=== PATIENT | female | born 1990 | race Caucasian/White ===

== ENCOUNTER → 2016-08-10 | Outpatient (REF) | payer OTHER ==
[~2016-08-10] MED LIST: ACET50TA PO; HYDR25T PO; METF500T PO; MOTR200T40 PO; OXYC1TAB23 PO; PRENTAB29 PO; PROZ20CA11 PO; TRAN200T PO
[2016-08-10 17:37] LABS: FREE T4 0.8 NG/DL (0.76-1.46)
== END ==
LOC: M SFHCLERA 11:19
PROVIDERS: ATTEND Family Medicine
DX: Z86.59 Personal history of other mental and behavioral disorders (principal); E66.9 Obesity, unspecified; R73.09 Other abnormal glucose

== ENCOUNTER → 2017-04-12 | Outpatient (REF) | payer OTHER ==
[~2017-04-12] MED LIST changes: +HYDR-3363 PO; -HYDR25T PO; -METF500T PO; +METF500T13 PO; -MOTR200T40 PO; +MOTR200T44 PO
[2017-04-12 12:31] LABS: ANION GAP 10 MEQ/L (8-16); BLOOD UREA NITROGEN 11 MG/DL (7-18); CALCIUM LEVEL 8.5 MG/DL (8.5-10.1); CARBON DIOXIDE LEVEL 24 MEQ/L (21-32); CHLORIDE LEVEL 109 MEQ/L (98-107); CREATININE FOR GFR 0.83 MG/DL (0.55-1.02); GLOMERULAR FILTRATION RATE > 60.0 (>60); GLUCOSE, FASTING 106 MG/DL (70-105); SODIUM LEVEL 143 MEQ/L (136-145)
== END ==
LOC: M SFHCLERA 10:58
PROVIDERS: ATTEND Family Medicine
DX: R39.89 Other symptoms and signs involving the genitourinary system (principal); R39.9 Unspecified symptoms and signs involving the genitourinary system

== ENCOUNTER → 2017-04-16 | Outpatient (CLI) | payer OTHER ==
--- NOTE | 2017-04-16 14:18 | REP ---
Clinical: Lower abdominal pain. Technique: Real time sethi scale and color evaluation of the kidneys and bladder using curved array transducer. Findings: The bilateral kidneys are normal in contour, size, echogenicity and reniform shape without hydronephrosis, nephrolithiasis, cystic or renal mass lesion. Right kidney measures 11.3 x 5.3 x 4.1 cm. Left kidney measures 10.8 x 6.0 x 6.0 cm. The bladder is normal in appearance without wall thickening or mass lesion. Bilateral ureteral jets are identified. Prevoid bladder measures 7.5 x 7.0 x 4.7 cm (160 ml). Postvoid bladder is completely emptied. Impression: Normal renal and bladder ultrasound. Signed by Ángel Beltran MD 04/16/2017 02:09 P
== END ==
LOC: M RAD 13:08
PROVIDERS: ATTEND Family Medicine
DX: R10.9 Unspecified abdominal pain (principal)

== ENCOUNTER → 2017-05-21 | Outpatient (REF) | payer OTHER | LOC: M SFHCLERA 09:44 | PROVIDERS: ATTEND Nurse Practitioner Family | DX: J06.9 Acute upper respiratory infection, unspecified (principal) ==

== ENCOUNTER 2017-10-15 13:52 | Day surgery (SDC) | payer OTHER ==
[2017-10-15 14:26] LABS: HEMATOCRIT 39.3 % (36.0-47.0); HEMOGLOBIN 13.2 g/dl (12.0-16.0); MEAN CORPUSCULAR HEMOGLOBIN 28.9 pg (27.0-33.0); MEAN CORPUSCULAR HGB CONC 33.6 g/dl (32.0-36.5); PLATELET COUNT, AUTOMATED 238 10^3/uL (150-450); RED BLOOD COUNT 4.57 10^6/uL (4.00-5.40); RED CELL DISTRIBUTION WIDTH 12.2 % (11.5-14.5); WHITE BLOOD COUNT 8.8 10^3/uL (4.0-10.0)
[2017-10-15] MEDS: LR 1,000 ML IV (14:30)
[2017-10-15 14:39] LABS: CONTROL LINE UCG INT CTR LINE PRESENT; URINE PREG TEST NEGATIVE (NEGATIVE)
[2017-10-15] MEDS ORDERED: METOCLOPRAMIDE INJ 10MG/2ML VIAL (J2765) As Ordered (15:59)
[2017-10-15] MEDS ORDERED: fentaNYL 100 MCG/2 ML INJECTION (J3010) As Ordered ×3 (15:59→17:54)
[2017-10-15] MEDS ORDERED: ONDANSETRON 4MG/2ML VIAL (J2405) As Ordered (15:59)
[2017-10-15] MEDS ORDERED: KETOROLAC 60 MG/2 ML VIAL (J1885) As Ordered (15:59)
[2017-10-15] MEDS ORDERED: LIDOCAINE 2% INJ 100 MG/5 ML SDV (FOR ANES.) As Ordered (15:59)
[2017-10-15] MEDS ORDERED: PROPOFOL 200 MG/20 ML VIAL As Ordered (15:59)
[2017-10-15] MEDS ORDERED: MIDAZOLAM INJ 2 MG/2 ML VIAL (J2250) As Ordered (15:59)
[2017-10-15] MEDS ORDERED: SUCCINYLCHOLINE 100 MG/5 ML SYRINGE (J0330) As Ordered (16:04)
[2017-10-15] MEDS ORDERED: ROCURONIUM BROMIDE 50 MG/5 ML VIAL As Ordered (16:40)
[2017-10-15] MEDS: BUPIVACAINE HCL 0.25% 30 ML VIAL As Ordered (17:19)
[2017-10-15] MEDS ORDERED: GLYCOPYRROLATE INJ 0.2 MG/ML 2 ML VIAL As Ordered (17:42)
[2017-10-15] MEDS ORDERED: PERCOCET 5MG/325MG TAB As Ordered (17:54)
[2017-10-15] MEDS: fentaNYL 100 MCG/2 ML INJECTION (J3010) IV ×4 (17:55→18:10)
[2017-10-15] MEDS ORDERED: HYDROmorphone HCL 1 MG/ML SYRINGE (J1170) IV (18:00)
[2017-10-15] MEDS: PERCOCET 5MG/325MG TAB PO (18:00)
[2017-10-15] MEDS ORDERED: ONDANSETRON 4MG/2ML VIAL (J2405) IV (18:00)
[2017-10-15] MEDS ORDERED: LR 1,000 ML IV (18:00)
== END 2017-10-15 19:25 | disposition home or self-care (01) ==
LOC: M SDC 13:52
DX: N80.3 Endometriosis of pelvic peritoneum (principal); G43.909 Migraine, unspecified, not intractable, without status migrainosus; E28.2 Polycystic ovarian syndrome; F41.9 Anxiety disorder, unspecified; F32.9 Major depressive disorder, single episode, unspecified; J45.909 Unspecified asthma, uncomplicated; R06.83 Snoring; E66.9 Obesity, unspecified; Z68.41 Body mass index [BMI] 40.0-44.9, adult; Z88.0 Allergy status to penicillin; Z88.1 Allergy status to other antibiotic agents; Z88.2 Allergy status to sulfonamides; Z91.041 Radiographic dye allergy status; Z79.899 Other long term (current) drug therapy; Z79.84 Long term (current) use of oral hypoglycemic drugs; Z87.442 Personal history of urinary calculi; Z87.891 Personal history of nicotine dependence
CPT/HCPCS: 58662

== ENCOUNTER → 2017-12-10 | Outpatient (REF) | payer OTHER | LOC: M SFHCLERA 15:08 | DX: J02.9 Acute pharyngitis, unspecified (principal) ==

== ENCOUNTER → 2018-01-10 | Outpatient (REF) | payer OTHER | LOC: M SFHCLERA 17:03 | DX: N89.8 Other specified noninflammatory disorders of vagina (principal) ==

== ENCOUNTER → 2018-04-18 | Outpatient (REF) | payer OTHER | LOC: M SFHCLERA 20:14 | DX: N89.8 Other specified noninflammatory disorders of vagina (principal) | CPT/HCPCS: 87252 ==

== ENCOUNTER → 2018-07-14 | Outpatient (REF) | payer OTHER | LOC: M SFHCLERA 09:11 | DX: R10.13 Epigastric pain (principal); Z53.8 Procedure and treatment not carried out for other reasons ==

== ENCOUNTER → 2018-08-12 | Outpatient (REF) | payer OTHER ==
[~2018-08-12] MED LIST changes: -ACET50TA PO; +FISH7.5C PO; +MAPA500T2 PO; +PROAAER10 INH
== END ==
LOC: M LAB REF 13:34
PROVIDERS: ATTEND Specialist
DX: Z12.4 Encounter for screening for malignant neoplasm of cervix (principal)

== ENCOUNTER → 2019-07-03 | Outpatient (CLI) | payer OTHER ==
[~2019-07-03] MED LIST changes: +PROHANCE 279.3MG/ML 15ML VIAL (A9576) As Ordered ONE; +PROHANCE 279.3MG/ML 5ML VIAL (A9576) As Ordered ONE
--- NOTE | 2019-07-03 17:09 | REP ---
MRI cervical and thoracic spines: 07/03/2019. Indication: Demyelinating disease. Comparison: None. Technique: Multiplanar short and long TR sequences of the cervical thoracic spine were obtained including post-gadolinium imaging. 20 ml IV ProHance were administered. Findings: There is mild straightening of the cervical lordosis which is likely positional. No worrisome marrow signal is present. There are no areas of abnormal cord signal. No pathologic gadolinium enhancement is present. There are no focal disc herniations or areas of significant spinal canal / neural foraminal narrowing. The vertebral artery flow voids are unremarkable. No significant paraspinal soft tissue abnormalities are detected. Impression: Unremarkable MRI evaluation of the cervical and thoracic spines. No abnormal cord signal. Electronically Signed by Parish Smith DO 07/03/2019 05:00 P
== END ==
LOC: M RAD 14:46
DX: G37.9 Demyelinating disease of central nervous system, unspecified (principal)
CPT/HCPCS: 72156; 72157; A9576

== ENCOUNTER → 2019-07-13 | Outpatient (CLI) | payer OTHER ==
[~2019-07-13] MED LIST changes: -PROHANCE 279.3MG/ML 15ML VIAL (A9576) As Ordered ONE; -PROHANCE 279.3MG/ML 5ML VIAL (A9576) As Ordered ONE
[2019-07-13 20:39] LABS: FREE T4 0.94 NG/DL (0.76-1.46); THYROID STIMULATING HORMONE 1.22 uIU/ML (0.358-3.740)
== END ==
LOC: M LRY 15:54
PROVIDERS: ATTEND Internal Medicine Endocrinology, Diabetes & Metabolism
DX: E03.8 Other specified hypothyroidism (principal)
CPT/HCPCS: 36415; 84439; 84443; G0463

== ENCOUNTER → 2019-08-15 | Outpatient (CLI) | payer OTHER ==
[2019-08-15 16:42] LABS: INR 1.06; PROTHROMBIN TIME 13.5 SECONDS (11.8-14.0)
== END ==
LOC: M LAB 15:50
PROVIDERS: ATTEND Psychiatry & Neurology Neurology
DX: G93.2 Benign intracranial hypertension (principal)

== ENCOUNTER → 2019-08-21 | Outpatient (CLI) | payer OTHER ==
[~2019-08-21] MED LIST changes: +ISOVUE-M 300 61% 15ML VIAL (Q9967) As Ordered ONE; +LIDOCAINE 1% MDV 20ML VIAL As Ordered ONE; +METO1TAB33 PO; +OMEP40CA97 PO; +XANA0.25 PO
[2019-08-21 12:31] LABS: APPEARANCE, CSF CLEAR (CLEAR); COLOR, CSF COLORLESS (COLORLESS); CSF TUBE# CELL CNT TUBE 2
[2019-08-21 12:58] LABS: CSF TUBE# GLU TUBE 3; CSF TUBE# TP TUBE 3; GLUCOSE CSF 59 MG/DL (40-75); TOTAL PROTEIN,CSF 26 MG/DL (15-45)
[2019-08-21 14:00] VITALS: BP 133/64
--- NOTE | 2019-08-21 19:53 | REP ---
Lumbar puncture under fluoroscopic guidance. The procedure was performed by SUE Nicolas, under the direct supervision of Dr. Dow. Procedure: The risks and benefits of the procedure were explained to the patient and informed consent was obtained both verbally and written. Directly prior to the start of the procedure, a formal timeout was completed in the procedure room. The patient was placed prone on the fluoroscopy table. The L 2-3 interspinous level was localized and confirmed fluoroscopically, and the skin was marked dorsally at this level. The skin was prepped and draped in the usual sterile fashion. 5 mL of 1% lidocaine 10 mg/ml was utilized for local anesthetic. An 22 gauge 3.5 inches spinal needle was advanced without significant difficulty into the cerebrospinal space at the L 2-3 interspinous level. 13 ml clear freely flowing cerebrospinal fluid was retrieved and sent to the laboratory for analysis. Initial opening pressure was elevated measured by manometry and was 33 cm of water. The patient tolerated the procedure well and there were no immediate complications. 0.3 minutes of fluoroscopy time was utilized for this procedure. Reviewed by SUE Jason 08/21/2019 03:06 P Electronically Signed by Balaji Dow MD 08/21/2019 07:43 P
== END ==
LOC: M IRPRO 10:43
PROVIDERS: ATTEND Psychiatry & Neurology Neurology
DX: G93.2 Benign intracranial hypertension (principal)

== ENCOUNTER → 2019-09-26 | Outpatient (REF) | payer OTHER ==
[~2019-09-26] MED LIST changes: -ISOVUE-M 300 61% 15ML VIAL (Q9967) As Ordered ONE; -LIDOCAINE 1% MDV 20ML VIAL As Ordered ONE
== END ==
LOC: M SFHCWAGY 13:02
PROVIDERS: ATTEND Specialist
DX: Z01.419 Encounter for gynecological examination (general) (routine) without abnormal findings (principal)
CPT/HCPCS: 87624; G0123; G0463

== ENCOUNTER → 2020-01-17 | Outpatient (CLI) | payer OTHER ==
--- NOTE | 2020-01-21 08:15 | ECHO ---
DATE OF PROCEDURE: 01/17/2020 DATE OF : 1990 AGE: 29 REFERRING PROVIDER: Dr. Ni Cazares PATIENT LOCATION: Outpatient REASON FOR STUDY: Palpitations. 2-D MEASUREMENTS: IVS: 1.1 cm LV: 4.4 cm LA: 3.4 cm Aorta: 2.5 cm IVC: 1.7 DOPPLER MEASUREMENTS: Peak velocity across the aortic valve: 1.1 m/s Peak velocity across the LVOT: 0.77 m/s Mitral E: 1.1 Mitral A: 0.77 Ratio: 1.4 2-D COMMENTS: 1. Normal left ventricular size, wall thickness, and normal global left ventricular systolic function. The estimated left ventricular systolic ejection fraction is 60-65%. 2. Normal left atrium. Normal right atrium and right ventricle. 3. The atrial septum appeared to be normal without evidence of defect or shunt. 4. Normal aortic root. 5. No pericardial effusion seen. 6. The aortic valve, mitral valve, and tricuspid valve appeared to be normal. The pulmonic valve and proximal pulmonary artery branches were not well visualized. 7. The inferior vena cava was normal in size, central venous pressure is most likely normal. DOPPLER: Only trace mitral regurgitation detected. Assessment of the left ventricular diastolic function was normal. IMPRESSION: 1. Normal left ventricular systolic and diastolic function. 2. Trace mitral regurgitation. 3. The pulmonic valve and proximal pulmonary artery branches were not well visualized. MTDD
== END ==
LOC: M CARPUL 08:01
PROVIDERS: ATTEND Family Medicine
DX: R00.2 Palpitations (principal)

== ENCOUNTER → 2020-03-12 | Outpatient (REF) | payer OTHER ==
[2020-04-26 17:25] LABS: ALBUMIN 3.7 GM/DL (3.2-5.2); ALT/SGPT 30 U/L (12-78); BILIRUBIN,TOTAL 0.2 MG/DL (0.2-1.0); BLOOD UREA NITROGEN 18 MG/DL (7-18); CALCIUM LEVEL 8.9 MG/DL (8.5-10.1); CARBON DIOXIDE LEVEL 32 MEQ/L (21-32); CHLORIDE LEVEL 105 MEQ/L (98-107); CREATININE FOR GFR 0.82 MG/DL (0.55-1.30); FREE T4 0.99 NG/DL (0.76-1.46); GLOMERULAR FILTRATION RATE > 60.0 (>60); GLUCOSE, FASTING 98 MG/DL (70-100); POTASSIUM SERUM 3.3 MEQ/L (3.5-5.1); SODIUM LEVEL 141 MEQ/L (136-145); TOTAL PROTEIN 7.1 GM/DL (6.4-8.2)
== END ==
LOC: M SFHCLERA 09:34
PROVIDERS: ATTEND Family Medicine
DX: R35.0 Frequency of micturition (principal)
CPT/HCPCS: 80053; 81002; 81025; 84439; 84443; 87086; G0463

== ENCOUNTER → 2020-05-06 | Outpatient (CLI) | payer OTHER ==
[2020-05-06 11:30] LABS: BASO % 0.6 % (0.0-1.0); EOS # 0.1 10^3/uL (0.0-0.5); EOS % 1.5 % (0.0-3.0); HEMATOCRIT 35.1 % (36.0-47.0); HEMOGLOBIN 10.6 g/dl (12.0-15.5); LYMPH # 1.9 10^3/uL (1.5-5.0); LYMPH % 28.4 % (24.0-44.0); MEAN CORPUSCULAR HEMOGLOBIN 24.7 pg (27.0-33.0); MEAN CORPUSCULAR HGB CONC 30.2 g/dl (32.0-36.5); MEAN CORPUSCULAR VOLUME 81.8 fl (80.0-96.0); MONO # 0.4 10^3/uL (0.0-0.8); MONO % 6.2 % (0.0-5.0); NEUTROPHILS # 4.3 10^3/uL (1.5-8.5); NEUTROPHILS % 62.7 % (36.0-66.0); PLATELET COUNT, AUTOMATED 267 10^3/uL (150-450); RED BLOOD COUNT 4.29 10^6/uL (4.00-5.40); WHITE BLOOD COUNT 6.8 10^3/uL (4.0-10.0)
[2020-05-06 11:32] LABS: APPEARANCE, URINE HAZY (CLEAR); BACTERIA, URINE AUTO NEGATIVE (NEGATIVE); BILIRUBIN, URINE AUTO NEGATIVE (NEGATIVE); BLOOD, URINE BLOOD NEGATIVE (NEGATIVE); COLOR, URINE YELLOW (YELLOW); GLUCOSE, URINE (UA) AUTO NEGATIVE (NEGATIVE); KETONE, URINE AUTO NEGATIVE (NEGATIVE); LEUKOCYTE ESTERASE, URINE AUTO NEGATIVE (NEGATIVE); MUCUS, URINE SMALL (NEGATIVE); NITRITE, URINE AUTO NEGATIVE (NEGATIVE); PROTEIN, URINE AUTO NEGATIVE (NEGATIVE); RBC, URINE AUTO 0 /HPF (0-3); SQUAMOUS EPITHELIAL CELL UR AU 2 /HPF (0-6); UROBILINOGEN, URINE AUTO 0.2 mg/dL (0.0-2.0); WBC, URINE AUTO 0 /HPF (0-3)
[2020-05-06 11:41] LABS: INR 1.03; PROTHROMBIN TIME 13.7 SECONDS (12.5-14.3)
[2020-05-06 12:17] LABS: ALBUMIN 3.4 GM/DL (3.2-5.2); ALT/SGPT 27 U/L (12-78); BILIRUBIN,TOTAL 0.2 MG/DL (0.2-1.0); BLOOD UREA NITROGEN 16 MG/DL (7-18); CALCIUM LEVEL 8.5 MG/DL (8.5-10.1); CARBON DIOXIDE LEVEL 31 MEQ/L (21-32); CHLORIDE LEVEL 107 MEQ/L (98-107); CHOLESTEROL LEVEL 166 MG/DL (<200); CHOLESTEROL RISK RATIO 3.531 (<5); CREATININE FOR GFR 0.72 MG/DL (0.55-1.30); FERRITIN 11 NG/ML (8-252); FOLATE 6.7 NG/ML (>5.4); GLOMERULAR FILTRATION RATE > 60.0 (>60); GLUCOSE, FASTING 88 MG/DL (70-100); HDL CHOLESTEROL 47 MG/DL (>40); LDL CHOLESTEROL 106 MG/DL (<100); NON-HDL-C 119 MG/DL; PTH INTACT 88.5 PG/ML (18.5-88.0); SODIUM LEVEL 141 MEQ/L (136-145); TOTAL 25(OH) VITAMIN D 20.3 NG/ML (30.0-100.0); TOTAL PROTEIN 7.2 GM/DL (6.4-8.2); TRIGLYCERIDES LEVEL 64 MG/DL (<150); VITAMIN B12 LEVEL 458 PG/ML (247-911)
[2020-05-06 12:30] LABS: HEMOGLOBIN A1c 5.8 %
== END ==
LOC: M LAB 10:16
PROVIDERS: ATTEND Surgery
DX: E03.8 Other specified hypothyroidism (principal); R53.83 Other fatigue; Z68.42 Body mass index [BMI] 45.0-49.9, adult

== ENCOUNTER → 2020-05-06 | Outpatient (CLI) | payer OTHER ==
[2020-05-06 12:15] LABS: CORTISOL AM 5.1 UG/DL (4.3-22.4); FREE T4 0.85 NG/DL (0.76-1.46); THYROID STIMULATING HORMONE 2.26 uIU/ML (0.358-3.740)
== END ==
LOC: M LAB 10:11
PROVIDERS: ATTEND Internal Medicine Endocrinology, Diabetes & Metabolism
DX: E03.8 Other specified hypothyroidism (principal); R53.83 Other fatigue

== ENCOUNTER → 2020-06-02 | Outpatient (CLI) | payer OTHER ==
--- NOTE | 2020-06-04 13:20 | SLEEPCENT ---
DATE: 06/02/2020 ORDERED BY: Dr. Zhong Nocturnal polysomnography was performed for evaluation of sleep physiology in this patient with excessive somnolence and nonrestorative sleep. Eight hours and 4 minutes of data were reviewed. There were 403.5 minutes of sleep identified. Sleep latency was prolonged at 24 minutes. REM latency was mildly prolonged at 118 minutes. Sleep architecture showed fragmentation. There were three REM cycles appreciated. Overall sleep efficiency was 84.4%. The electrocardiogram showed a sinus rhythm with an average heart rate of 60 beats per minute. EEG showed fairy normal waveforms for wake and sleep. There were no focal events identified. There were 232 respiratory events identified of 10 seconds in duration or greater for an apnea-hypopnea index of 34.5. The events were obstructive not exclusive to sleep stage nor body posture. Arousals from respiratory events occurred 9.2 times per hour and oxygen desaturations were seen into the low 80s with some activity in the limb leads, one train of 30 events, limb movement arousal index was 3. IMPRESSION: Severe obstructive sleep apnea syndrome (G47.33). Apnea-hypopnea index 34.5. RECOMMENDATION: The patient should be encouraged to return to [facility] for [facility]. In the interim, alcohol and sedative avoidance should be practiced and cautioned exercised during the operation of motor vehicles. FLORD
== END ==
LOC: M SLEEP 20:00
PROVIDERS: ATTEND Internal Medicine Pulmonary Disease
DX: R40.0 Somnolence (principal)

== ENCOUNTER → 2020-10-14 | Outpatient (CLI) | payer OTHER ==
--- NOTE | 2020-10-14 11:04 | REP ---
INDICATION: HISTORY OF LEFT GANGLION CYST. COMPARISON: None. TECHNIQUE: AP, lateral, oblique views of the left wrist FINDINGS: Osseous structures, joint spaces, and surrounding soft tissues are normal. No obvious soft tissue abnormality identified by radiographic evaluation. IMPRESSION: Normal right wrist radiographs. <Electronically signed by Ángel Beltran > 10/14/20 1103
== END ==
LOC: M SOG 10:41
PROVIDERS: ATTEND Orthopaedic Surgery Sports Medicine
DX: M67.432 Ganglion, left wrist (principal)
CPT/HCPCS: 17110; 73110; G0463

== ENCOUNTER → 2020-10-21 | Outpatient (CLI) | payer OTHER ==
--- NOTE | 2020-10-21 12:25 | REP ---
INDICATION: GANGLION, LEFT WRIST. COMPARISON: None. TECHNIQUE: Multiple sequences obtained in the axial, coronal and sagittal planes. FINDINGS: Triangular fibrocartilage complex:No evidence of tear. Scapholunate and lunatotriquetral ligaments: Intact. Flexor and extensor tendons: Intact. There is a tiny amount of fluid surrounding the extensor carpi ulnaris tendon at the level of the distal radius.. Carpal tunnel region: No significant abnormality. No abnormal signal in median nerve. No ganglion cyst is seen. Joint fluid: There is a small amount of fluid in the radiocarpal joint.. Distal radioulnar joint: No significant fluid present. Bone marrow: No edema or occult fracture. IMPRESSION: Essentially negative MRI right wrist. Tiny amount of fluid surrounds the extensor carpi ulnaris tendon. Small amount of fluid in the radiocarpal joint. <Electronically signed by Anup Mcmillan > 10/21/20 [id number]
== END ==
LOC: M RAD 10:24
PROVIDERS: ATTEND Orthopaedic Surgery Sports Medicine
DX: M67.432 Ganglion, left wrist (principal)

== ENCOUNTER → 2020-10-31 | Outpatient (REF) | payer OTHER | LOC: M LAB REF 16:36 | PROVIDERS: ATTEND Physician Assistant | DX: D23.9 Other benign neoplasm of skin, unspecified (principal) ==

== ENCOUNTER 2020-12-11 13:47 | Emergency (ER) | payer OTHER ==
[~2020-12-11] VITALS: Ht 165.1 cm; Wt 121.0 kg
[2020-12-11 14:53] LABS: BASO # 0.1 10^3/uL (0.0-0.2); BASO % 0.7 % (0.0-1.0); EOS # 0.1 10^3/uL (0.0-0.5); EOS % 0.8 % (0.0-3.0); HEMATOCRIT 40.1 % (36.0-47.0); HEMOGLOBIN 12.9 g/dl (12.0-15.5); LYMPH # 2.4 10^3/uL (1.5-5.0); LYMPH % 27.1 % (24.0-44.0); MEAN CORPUSCULAR HEMOGLOBIN 28.1 pg (27.0-33.0); MEAN CORPUSCULAR HGB CONC 32.2 g/dl (32.0-36.5); MEAN CORPUSCULAR VOLUME 87.4 fl (80.0-96.0); MONO # 0.5 10^3/uL (0.0-0.8); MONO % 6.1 % (2.0-8.0); NEUTROPHILS # 5.7 10^3/uL (1.5-8.5); PLATELET COUNT, AUTOMATED 274 10^3/uL (150-450); RED BLOOD COUNT 4.59 10^6/uL (4.00-5.40); WHITE BLOOD COUNT 8.7 10^3/uL (4.0-10.0)
[2020-12-11 15:08] LABS: INR 1.03; PROTHROMBIN TIME 13.7 SECONDS (12.5-14.3)
[2020-12-11 15:09] LABS: PARTIAL THROMBOPLASTIN TIME 32.9 SECONDS (24.2-38.5)
[2020-12-11 15:15] LABS: BLOOD UREA NITROGEN 14 MG/DL (7-18); CALCIUM LEVEL 9.6 MG/DL (8.5-10.1); CARBON DIOXIDE LEVEL 29 MEQ/L (21-32); CHLORIDE LEVEL 108 MEQ/L (98-107); CK-MB VALUE MASS 1.5 NG/ML (<3.6); CPK CREATINE PHOSPHOKINASE 125 U/L (26-192); CREATININE FOR GFR 0.79 MG/DL (0.55-1.30); GLOMERULAR FILTRATION RATE > 60.0 (>60); GLUCOSE, FASTING 83 MG/DL (70-100); SODIUM LEVEL 142 MEQ/L (136-145); TROPONIN I < 0.02 NG/ML (< 0.10)
[2020-12-11 15:29] LABS: HCG, SERUM QUALITATIVE NEGATIVE (NEGATIVE)
[2020-12-11] MEDS ORDERED: FERR325T19 (15:37)
[2020-12-11] MEDS ORDERED: CHLO125TA (15:37)
[2020-12-11] MEDS ORDERED: ACET500C10 (15:37)
[2020-12-11] MEDS ORDERED: POTA20TA6 (15:37)
[2020-12-11] MEDS ORDERED: AMMO12LO (15:37)
[2020-12-11] MEDS ORDERED: EUTH50TA (15:37)
[2020-12-11] MEDS ORDERED: PIME1CRE (15:37)
[2020-12-11] MEDS ORDERED: BUPR150T5 (15:37)
[2020-12-11] MEDS ORDERED: VRAY3CAP (15:38)
--- NOTE | 2020-12-11 15:50 | REP ---
INDICATION: CVA. COMPARISON: None. TECHNIQUE: Portable FINDINGS: The technique utilized in obtaining the radiograph has magnified the cardiac silhouette and accentuated the interstitial markings. The superior mediastinal structures are midline. The cardiac silhouette is unremarkable in size, shape, and position. The diaphragmatic surfaces of the lungs are regular, and the costophrenic angles are clear. The pulmonary haynes are clear. The imaged osseous structures are intact. IMPRESSION: There is no acute cardiopulmonary disease. <Electronically signed by Cornelio Grewal > 12/11/20 [id number]
--- NOTE | 2020-12-11 16:03 | REPVR ---
PROCEDURE INFORMATION: Exam: CT Head Without Contrast Exam date and time: 12/11/2020 3:53 PM Age: 30 years old Clinical indication: Pain; Headache; Additional info: Visual changes, double visons TECHNIQUE: Imaging protocol: Computed tomography of the head without contrast. Axial and coronal reformatted images were created and reviewed. Radiation optimization: All CT scans at this facility use at least one of these dose optimization techniques: automated exposure control; mA and/or kV adjustment per patient size (includes targeted exams where dose is matched to clinical indication); or iterative reconstruction. COMPARISON: No relevant prior studies available. FINDINGS: Brain: No CT evidence of acute intracranial hemorrhage or acute territorial infarction. No significant mass effect or midline shift. Basal cisterns patent. Cerebral ventricles: Normal in size and configuration. Bones/joints: No acute osseous abnormality. Paranasal sinuses: Unremarkable. No fluid levels. Mastoid air cells: Grossly unremarkable. Soft tissues: Grossly unremarkable. IMPRESSION: No CT evidence of acute intracranial pathology. Electronically signed by: Miguel Davenport On 12/11/2020 16:03:21 PM
[2020-12-11] MEDS: POTASSIUM CHLORIDE 10 MEQ SR TABLET PO ONE (16:13)
[2020-12-11 16:44] VITALS: BP 136/80
--- NOTE | 2020-12-12 02:44 | ECGEPIP ---
[facility] - ED Test Date: 2020-12-11 Pat Name: JIM HAIR Department: Room: - Gender: Female [employer] Chair: akhilgiorgi : 1990 Requested By: BRENT Cross Order Number: [id number] Reading MD: Kye Gray Measurements Intervals [place] Rate: 76 P: 60 MD: 168 QRS: 31 QRSD: 98 T: 3 QT: 418 QTc: 470 Interpretive Statements Normal sinus rhythm POOR R WAVE PROGRESSION BASELINE ARTIFACT AFFECTS INTERPRETATION Electronically Signed on 12-12-2020 2:43:33 EDT by Kye Gray
== END 2020-12-11 16:44 | disposition home or self-care (01) ==
LOC: M ED 13:47
DX: G93.2 Benign intracranial hypertension (principal); E87.6 Hypokalemia; K58.9 Irritable bowel syndrome, unspecified; K90.0 Celiac disease; I10 Essential (primary) hypertension; E28.2 Polycystic ovarian syndrome; G47.33 Obstructive sleep apnea (adult) (pediatric); F41.9 Anxiety disorder, unspecified; F17.200 Nicotine dependence, unspecified, uncomplicated; Z79.899 Other long term (current) drug therapy; Z79.890 Hormone replacement therapy; Z88.1 Allergy status to other antibiotic agents; Z88.2 Allergy status to sulfonamides; Z88.8 Allergy status to other drugs, medicaments and biological substances; Z88.0 Allergy status to penicillin; Z91.041 Radiographic dye allergy status

== ENCOUNTER 2020-12-17 18:27 | Emergency (ER) | payer OTHER ==
[~2020-12-17] VITALS: Ht 165.1 cm; Wt 119.4 kg
[~2020-12-17 18:27] MED LIST changes: +ACET500C10; +AMMO12LO; +BUPR150T5; +CHLO125TA; +EUTH50TA; +FERR325T19; +PIME1CRE; +POTA20TA6; +VRAY3CAP
[2020-12-17] MEDS ORDERED: NS 1,000 ML IV ONE (19:40)
[2020-12-17] MEDS ORDERED: KETOROLAC 30 MG/ML 1ML VIAL IV ONE (19:40)
[2020-12-17] MEDS ORDERED: METOCLOPRAMIDE INJ 10MG/2ML VIAL (J2765 PER 1) IV ONE (19:40)
[2020-12-17] MEDS ORDERED: diphenhydrAMINE 50MG/ML VIAL (J1200) IV ONE (19:40)
[2020-12-17 20:51] LABS: BASO # 0.1 10^3/uL (0.0-0.2); BASO % 0.7 % (0.0-1.0); EOS # 0.1 10^3/uL (0.0-0.5); EOS % 0.9 % (0.0-3.0); HEMATOCRIT 39.8 % (36.0-47.0); HEMOGLOBIN 13.4 g/dl (12.0-15.5); LYMPH # 2.4 10^3/uL (1.5-5.0); LYMPH % 22.5 % (24.0-44.0); MEAN CORPUSCULAR HGB CONC 33.7 g/dl (32.0-36.5); MEAN CORPUSCULAR VOLUME 86.1 fl (80.0-96.0); MONO # 0.5 10^3/uL (0.0-0.8); MONO % 4.5 % (2.0-8.0); NEUTROPHILS # 7.4 10^3/uL (1.5-8.5); NEUTROPHILS % 70.9 % (36.0-66.0); PLATELET COUNT, AUTOMATED 270 10^3/uL (150-450); RED BLOOD COUNT 4.62 10^6/uL (4.00-5.40); WHITE BLOOD COUNT 10.5 10^3/uL (4.0-10.0)
[2020-12-17 21:15] LABS: BLOOD UREA NITROGEN 17 MG/DL (7-18); CALCIUM LEVEL 8.7 MG/DL (8.5-10.1); CARBON DIOXIDE LEVEL 25 MEQ/L (21-32); CHLORIDE LEVEL 107 MEQ/L (98-107); CREATININE FOR GFR 0.94 MG/DL (0.55-1.30); GLOMERULAR FILTRATION RATE > 60.0 (>60); GLUCOSE, FASTING 96 MG/DL (70-100); POTASSIUM SERUM 2.7 MEQ/L (3.5-5.1); SODIUM LEVEL 142 MEQ/L (136-145)
[2020-12-17] MEDS ORDERED: POTASSIUM CHLORIDE 10 MEQ SR TABLET PO ONE ×2 (21:20→22:50)
[2020-12-17 21:30] LABS: MAGNESIUM LEVEL 1.9 MG/DL (1.8-2.4)
--- NOTE | 2020-12-17 21:48 | REPVR ---
PROCEDURE INFORMATION: Exam: CT Head without Contrast Exam date and time: 12/17/20 (8:59pm) Age: 30 years old Clinical indication: Headache. Possible IIH. TECHNIQUE: Imaging protocol: Computed tomography of the head without contrast. Radiation optimization: All CT scans at this facility use at least one of these dose optimization techniques: automated exposure control; mA and/or kV adjustment per patient size (includes targeted exams where dose is matched to clinical indication); or iterative reconstruction. COMPARISON: CT HEAD of 12/11/20 FINDINGS: Brain: Unremarkable. No acute hemorrhage. Unremarkable white matter. No mass effect. Cerebral ventricles: No ventriculomegaly. Bones/joints: Unremarkable. No acute fracture. Paranasal sinuses: Visualized sinuses are unremarkable. No air-fluid levels. Mastoid air cells: Visualized mastoid air cells are well aerated. Soft tissues: Unremarkable. IMPRESSION: No acute intracranial pathology is appreciated. The brain had a similar appearance 6 days ago. Electronically signed by: Agnes Diallo On 12/17/2020 21:48:41 PM
[2020-12-17 23:30] VITALS: BP 124/59
--- NOTE | 2020-12-18 04:59 | ECGEPIP ---
[facility] - ED Test Date: 2020-12-17 Pat Name: JIM HAIR Department: Room: - Gender: Female [employer]: ELEAZAR : 1990 Requested By: MONTRELL Valdes Order Number: [id number] Reading MD: Kye Gray Measurements Intervals [place] Rate: 75 P: -2 OK: 164 QRS: 27 QRSD: 96 T: 56 QT: 408 QTc: 455 Interpretive Statements Normal sinus rhythm POOR R WAVE PROGRESSION Nonspecific T wave abnormality BASELINE ARTIFACT AFFECTS INTERPRETATION SIMILAR TO 12/11/20 Electronically Signed on 12-18-2020 4:59:02 EDT by Kye Gray
== END 2020-12-18 01:44 | disposition home or self-care (01) ==
LOC: M ED 18:27
DX: R51.9 Headache, unspecified (principal); G93.2 Benign intracranial hypertension; R42 Dizziness and giddiness; E28.2 Polycystic ovarian syndrome; E66.01 Morbid (severe) obesity due to excess calories; Z88.0 Allergy status to penicillin; Z88.8 Allergy status to other drugs, medicaments and biological substances; Z88.2 Allergy status to sulfonamides; Z79.899 Other long term (current) drug therapy
CPT/HCPCS: 70450; 80048; 83735; 84702; 85025; 93005; 96361; 96374; 96375; 99285; J1200; J1885; J2765

== ENCOUNTER → 2020-12-19 | Outpatient (CLI) | payer OTHER ==
[~2020-12-19] MED LIST changes: +E-Z-GAS II EFFERVESCENT PACKET (SODIUM BICARB./CITRIC ACID/SIMETHICONE) As Ordered ONE; +E-Z-HD 98% w/w 340GM SUSP BTL As Ordered ONE; +E-Z-PAQUE 96% w/w SUSP 176GM BTL As Ordered ONE
--- NOTE | 2020-12-20 09:16 | REP ---
INDICATION: MORBID OBESITY, PRE-OP. COMPARISON: None TECHNIQUE: This procedure was performed by Ginny Strauss [facility], under the direct supervision of Dr. Mcmillan. Images were reviewed with Dr. Mcmillan prior to dictation. Liquid barium and gas producing crystals were given in the erect position, as well as liquid barium in the prone oblique position in order to perform a double contrast upper GI examination. FINDINGS: The boat person film shows no organomegaly or pathological masses. The intestinal gas pattern is unremarkable. The oral and pharyngeal stages of deglutition were unremarkable. Esophageal transport is prompt and efficient and there is no evidence of esophagitis, stricture, or mucosal ring. There is no evidence of a hiatal hernia. There was no gastroesophageal reflux noted . The stomach yanez are normally outlined. The rugal folds are smooth and regular. There is no gastritis, neoplasm, or ulcerative disease. The duodenal yanez are normally outlined. The mucosal folds are smooth and regular. There is no duodenitis, peptic ulcer disease or neoplasm. The visualized portion of the proximal small bowel appears normal in course and caliber. IMPRESSION: Unremarkable upper GI. 0.6 minutes of fluoroscopy time was utilized for this procedure. Some fluoroscopic images are performed with last image hold technology. These images require no additional radiation. <Electronically signed by Ginny Strauss > 12/19/20 1715 <Electronically signed by Anup Mcmillan > 12/20/20 [id number]
== END ==
LOC: M RAD 08:20
PROVIDERS: ATTEND Surgery
DX: Z01.818 Encounter for other preprocedural examination (principal); E66.01 Morbid (severe) obesity due to excess calories

== ENCOUNTER → 2021-01-27 | Outpatient (REF) | payer OTHER ==
[~2021-01-27] MED LIST changes: -E-Z-GAS II EFFERVESCENT PACKET (SODIUM BICARB./CITRIC ACID/SIMETHICONE) As Ordered ONE; -E-Z-HD 98% w/w 340GM SUSP BTL As Ordered ONE; -E-Z-PAQUE 96% w/w SUSP 176GM BTL As Ordered ONE; +OMEP40CA4 PO; -OMEP40CA97 PO
== END ==
LOC: M SFHCLERA 16:25
PROVIDERS: ATTEND Nurse Practitioner Family
DX: R00.2 Palpitations (principal)

== ENCOUNTER → 2021-02-06 | Outpatient (REF) | payer OTHER | LOC: M LAB REF 17:51 | PROVIDERS: ATTEND Physician Assistant | DX: D48.5 Neoplasm of uncertain behavior of skin (principal) ==

== ENCOUNTER → 2021-07-14 | Outpatient (CLI) | payer OTHER ==
[~2021-07-14] MED LIST changes: +POTA-151; -POTA20TA6
[2021-07-14 11:22] LABS: APPEARANCE, URINE HAZY (CLEAR); BACTERIA, URINE AUTO NEGATIVE (NEGATIVE); BASO # 0.1 10^3/uL (0.0-0.2); BASO % 0.5 % (0.0-1.0); BILIRUBIN, URINE AUTO NEGATIVE (NEGATIVE); BLOOD, URINE BLOOD NEGATIVE (NEGATIVE); COLOR, URINE YELLOW (YELLOW); EOS # 0.1 10^3/uL (0.0-0.5); EOS % 1.1 % (0.0-3.0); GLUCOSE, URINE (UA) AUTO NEGATIVE (NEGATIVE); HEMATOCRIT 35.7 % (36.0-47.0); HEMOGLOBIN 11.6 g/dl (12.0-15.5); KETONE, URINE AUTO NEGATIVE (NEGATIVE); LEUKOCYTE ESTERASE, URINE AUTO NEGATIVE (NEGATIVE); LYMPH # 1.8 10^3/uL (1.5-5.0); MEAN CORPUSCULAR HEMOGLOBIN 27.7 pg (27.0-33.0); MEAN CORPUSCULAR HGB CONC 32.5 g/dl (32.0-36.5); MEAN CORPUSCULAR VOLUME 85.2 fl (80.0-96.0); MONO # 0.4 10^3/uL (0.0-0.8); MONO % 4.8 % (2.0-8.0); MUCUS, URINE SMALL (NEGATIVE); NEUTROPHILS # 6.7 10^3/uL (1.5-8.5); NEUTROPHILS % 73.1 % (36.0-66.0); NITRITE, URINE AUTO NEGATIVE (NEGATIVE); PLATELET COUNT, AUTOMATED 296 10^3/uL (150-450); PROTEIN, URINE AUTO NEGATIVE (NEGATIVE); RBC, URINE AUTO 1 /HPF (0-3); RED BLOOD COUNT 4.19 10^6/uL (4.00-5.40); SPECIFIC GRAVITY URINE AUTO 1.023 (1.002-1.035); SQUAMOUS EPITHELIAL CELL UR AU 2 /HPF (0-6); WBC, URINE AUTO 1 /HPF (0-3); WHITE BLOOD COUNT 9.2 10^3/uL (4.0-10.0)
[2021-07-14 11:36] LABS: INR 1.11; PROTHROMBIN TIME 14.7 SECONDS (12.7-14.5)
[2021-07-14 11:37] LABS: PARTIAL THROMBOPLASTIN TIME 34.4 SECONDS (25.9-37.0)
[2021-07-14 11:59] LABS: HEMOGLOBIN A1c 5.2 %
[2021-07-14 12:37] LABS: ALBUMIN 3.2 GM/DL (3.2-5.2); ALT/SGPT 18 U/L (12-78); BILIRUBIN,TOTAL 0.3 MG/DL (0.2-1.0); BLOOD UREA NITROGEN 13 MG/DL (7-18); CALCIUM LEVEL 9.1 MG/DL (8.5-10.1); CARBON DIOXIDE LEVEL 30 MEQ/L (21-32); CHLORIDE LEVEL 103 MEQ/L (98-107); CHOLESTEROL LEVEL 153 MG/DL (<200); CHOLESTEROL RISK RATIO 2.637 (<5); CREATININE FOR GFR 0.79 MG/DL (0.55-1.30); FERRITIN 11 NG/ML (8-252); FOLATE 10.8 NG/ML (>5.4); FREE T3 2.9 PG/ML (2.2-4.0); FREE T4 1.01 NG/DL (0.76-1.46); GLOMERULAR FILTRATION RATE > 60.0 (>60); GLUCOSE, FASTING 85 MG/DL (70-100); HDL CHOLESTEROL 58 MG/DL (>40); IRON (FE) 49 UG/DL (50-170); LDL CHOLESTEROL 69 MG/DL (<100); NON-HDL-C 95 MG/DL; PERCENT SATURATION 10.3 % (13.2-45.0); POTASSIUM SERUM 3.2 MEQ/L (3.5-5.1); PTH INTACT 52.4 PG/ML (18.5-88.0); SODIUM LEVEL 141 MEQ/L (136-145); TOTAL 25(OH) VITAMIN D 24.5 NG/ML (30.0-100.0); TOTAL IRON BINDING CAPACITY 478 UG/DL (250-450); TOTAL PROTEIN 7.2 GM/DL (6.4-8.2); TRIGLYCERIDES LEVEL 130 MG/DL (<150)
[2021-07-14 13:03] LABS: VITAMIN B12 LEVEL 361 PG/ML (247-911)
[2021-07-19 13:07] LABS: INSULIN LEVEL 37.2 uIU/mL (2.6-24.9); VITAMIN B1 LEVEL WHOLE BLOOD 119.7 nmol/L (66.5-200.0)
== END ==
LOC: M LAB 09:34
PROVIDERS: ATTEND Registered Nurse
DX: E66.01 Morbid (severe) obesity due to excess calories (principal); G93.2 Benign intracranial hypertension; G47.33 Obstructive sleep apnea (adult) (pediatric); I15.9 Secondary hypertension, unspecified; K21.9 Gastro-esophageal reflux disease without esophagitis; E03.9 Hypothyroidism, unspecified; R53.83 Other fatigue; F32.9 Major depressive disorder, single episode, unspecified

== ENCOUNTER → 2021-09-25 | Outpatient (CLI) | payer OTHER ==
[~2021-09-25] MED LIST changes: +BUPR-71; -BUPR150T5
[2021-09-25 10:51] LABS: BASO # 0.1 10^3/uL (0.0-0.2); BASO % 0.6 % (0.0-1.0); EOS # 0.1 10^3/uL (0.0-0.5); EOS % 0.9 % (0.0-3.0); HEMATOCRIT 37.7 % (36.0-47.0); HEMOGLOBIN 11.8 g/dl (12.0-15.5); LYMPH # 2.1 10^3/uL (1.5-5.0); LYMPH % 23.3 % (24.0-44.0); MEAN CORPUSCULAR HEMOGLOBIN 25.9 pg (27.0-33.0); MEAN CORPUSCULAR HGB CONC 31.3 g/dl (32.0-36.5); MEAN CORPUSCULAR VOLUME 82.9 fl (80.0-96.0); MONO # 0.5 10^3/uL (0.0-0.8); MONO % 5.5 % (2.0-8.0); NEUTROPHILS # 6.2 10^3/uL (1.5-8.5); NEUTROPHILS % 69.3 % (36.0-66.0); PLATELET COUNT, AUTOMATED 269 10^3/uL (150-450); RED BLOOD COUNT 4.55 10^6/uL (4.00-5.40); WHITE BLOOD COUNT 8.9 10^3/uL (4.0-10.0)
[2021-09-25 11:29] LABS: ALBUMIN 3.4 GM/DL (3.2-5.2); ALT/SGPT 21 U/L (12-78); BILIRUBIN,TOTAL 0.3 MG/DL (0.2-1.0); BLOOD UREA NITROGEN 11 MG/DL (7-18); CALCIUM LEVEL 8.8 MG/DL (8.5-10.1); CARBON DIOXIDE LEVEL 28 MEQ/L (21-32); CHLORIDE LEVEL 104 MEQ/L (98-107); CREATININE FOR GFR 0.78 MG/DL (0.55-1.30); FERRITIN 21 NG/ML (8-252); GLOMERULAR FILTRATION RATE > 60.0 (>60); GLUCOSE, FASTING 81 MG/DL (70-100); IRON (FE) 88 UG/DL (50-170); POTASSIUM SERUM 3.4 MEQ/L (3.5-5.1); SODIUM LEVEL 139 MEQ/L (136-145); TOTAL 25(OH) VITAMIN D 45.2 NG/ML (30.0-100.0); TOTAL IRON BINDING CAPACITY 441 UG/DL (250-450); TOTAL PROTEIN 7.3 GM/DL (6.4-8.2); VITAMIN B12 LEVEL 395 PG/ML
[2021-09-25 12:08] LABS: HEMOGLOBIN A1c 5.8 %
== END ==
LOC: M LAB 09:42
PROVIDERS: ATTEND Nurse Practitioner Family
DX: E55.9 Vitamin D deficiency, unspecified (principal); E28.2 Polycystic ovarian syndrome; E61.1 Iron deficiency

== ENCOUNTER → 2021-12-05 | Outpatient (CLI) | payer OTHER ==
[2021-12-05 10:55] LABS: ALBUMIN 3.2 GM/DL (3.2-5.2); ALT/SGPT 16 U/L (12-78); BILIRUBIN,TOTAL 0.3 MG/DL (0.2-1.0); BLOOD UREA NITROGEN 12 MG/DL (7-18); CALCIUM LEVEL 9.4 MG/DL (8.5-10.1); CARBON DIOXIDE LEVEL 27 MEQ/L (21-32); CHLORIDE LEVEL 108 MEQ/L (98-107); CREATININE FOR GFR 0.72 MG/DL (0.55-1.30); GLOMERULAR FILTRATION RATE > 60.0 (>60); GLUCOSE, FASTING 91 MG/DL (70-100); POTASSIUM SERUM 4.3 MEQ/L (3.5-5.1); SODIUM LEVEL 141 MEQ/L (136-145); TOTAL PROTEIN 7.4 GM/DL (6.4-8.2)
== END ==
LOC: M LAB 09:45
PROVIDERS: ATTEND Registered Nurse
DX: E66.01 Morbid (severe) obesity due to excess calories (principal)

== ENCOUNTER → 2021-12-25 | Outpatient (CLI) | payer OTHER ==
[2021-12-25 13:45] LABS: FOLLICLE STIMULATING HORMONE 5.7 mIU/mL; LUTEINIZING HORMONE 4.8 mIU/mL
[2021-12-25 14:11] LABS: HEMOGLOBIN A1c 5.3 %
[2021-12-26 18:07] LABS: TESTOSTERONE FREE (DIRECT) 0.6 pg/mL (0.0-4.2)
== END ==
LOC: M PLALAB 11:19
PROVIDERS: ATTEND Specialist
DX: E28.2 Polycystic ovarian syndrome (principal)

== ENCOUNTER → 2022-05-03 | Outpatient (CLI) | payer OTHER ==
[~2022-05-03] MED LIST changes: +FISH10005 PO; -FISH7.5C PO
== END ==
LOC: M LABSMTC 10:19
PROVIDERS: ATTEND Surgery
DX: Z20.828 Contact with and (suspected) exposure to other viral communicable diseases (principal); Z11.59 Encounter for screening for other viral diseases

== ENCOUNTER → 2022-11-03 | Outpatient (CLI) | payer OTHER ==
[2022-11-03 17:01] LABS: IRON (FE) 30 UG/DL (50-170)
[2022-11-03 17:02] LABS: ALBUMIN 3.8 G/DL (3.2-5.2); ALKALINE PHOSPHATASE 131 U/L (46-116); ALT/SGPT 19 U/L (7.0-40); AST/SGOT 15 U/L (<34); BILIRUBIN,TOTAL 0.3 MG/DL (0.3-1.2); BLOOD UREA NITROGEN 12 MG/DL (9-23); CALCIUM LEVEL 9.2 MG/DL (8.5-10.1); CARBON DIOXIDE LEVEL 29 MMOL/L (20-31); CHLORIDE LEVEL 107 MMOL/L (98-107); CHOLESTEROL LEVEL 166 MG/DL (<200); CHOLESTEROL RISK RATIO 2.78 (<5); GLOMERULAR FILTRATION RATE > 60.0 (>60); GLUCOSE, FASTING 78 MG/DL (60-100); HDL CHOLESTEROL 59.6 MG/DL (>40); LDL CHOLESTEROL 90.8 MG/DL (<100); NON-HDL-C 106.4 MG/DL; PERCENT SATURATION 7.5 % (13.2-45.0); POTASSIUM SERUM 4.4 MMOL/L (3.5-5.1); SODIUM LEVEL 144 MMOL/L (136-145); TOTAL IRON BINDING CAPACITY 402 UG/DL (250-425); TOTAL PROTEIN 7.4 G/DL (5.7-8.2); TRIGLYCERIDES LEVEL 78 MG/DL (<150)
[2022-11-03 17:03] LABS: TOTAL 25(OH) VITAMIN D 26.4 NG/ML (20.0-100.0)
[2022-11-03 17:04] LABS: VITAMIN B12 LEVEL 661 PG/ML (211-911)
== END ==
LOC: M PLALAB 09:57
PROVIDERS: ATTEND Physician Assistant
DX: Z98.84 Bariatric surgery status (principal)

== ENCOUNTER → 2022-12-01 | Outpatient (REF) | payer OTHER | LOC: M SFHCWAGY 08:47 | PROVIDERS: ATTEND Nurse Practitioner Family | DX: Z12.4 Encounter for screening for malignant neoplasm of cervix (principal); Z01.419 Encounter for gynecological examination (general) (routine) without abnormal findings; Z77.9 Other contact with and (suspected) exposures hazardous to health ==

== ENCOUNTER 2023-05-07 13:17 | Day surgery (SDC) | payer OTHER ==
[~2023-05-07] VITALS: Ht 165.1 cm; Wt 106.3 kg
[~2023-05-07 13:17] MED LIST changes: +AJOV225I SC; +ALBU8.5H INH; +ALPR0.25 PO; +BUPR-69 PO; -BUPR-71; +BUPR-71 PO; +BUSP15TA47 PO; -CHLO125TA; +CHLO125TA PO; +ERGO500029 PO; -EUTH50TA; +EUTH50TA PO; -FERR325T19; +FERR325T19 PO; +FLUO10CA18 PO; +FLUO40CA PO; +FREM225A; +LISI20TA33 PO; +NARA2.5T PO; +ONDA4TAB6 PO; -POTA-151; +POTA-151 PO; +TOPI25TA10 PO; +VITA100054 PO; -VRAY3CAP; +VRAY3CAP PO
[2023-05-07] MEDS ORDERED: LR 1,000 ML IV SCH ×2 (13:55→16:30)
[2023-05-07 14:09] LABS: HEMATOCRIT 39.8 % (36.0-47.0); HEMOGLOBIN 12.8 g/dl (12.0-15.5); MEAN CORPUSCULAR HEMOGLOBIN 27.9 pg (27.0-33.0); MEAN CORPUSCULAR HGB CONC 32.2 g/dl (32.0-36.5); MEAN CORPUSCULAR VOLUME 86.9 fl (80.0-96.0); PLATELET COUNT, AUTOMATED 252 10^3/uL (150-450); RED BLOOD COUNT 4.58 10^6/uL (4.00-5.40); WHITE BLOOD COUNT 7.2 10^3/uL (4.0-10.0)
[2023-05-07] MEDS ORDERED: ACETAMINOPHEN 1000MG 100ML IV BAG As Ordered ONE ×2 (14:56→15:46)
[2023-05-07] MEDS ORDERED: fentaNYL 100 MCG/2 ML INJECTION As Ordered ONE (14:56)
[2023-05-07] MEDS ORDERED: ONDANSETRON 4MG 2ML VIAL As Ordered ONE (14:56)
[2023-05-07] MEDS ORDERED: KETOROLAC 60MG 2ML VIAL As Ordered ONE (14:56)
[2023-05-07] MEDS ORDERED: SUGAMMADEX SODIUM 500 MG/5 ML VIAL (BRIDION) As Ordered ONE (14:56)
[2023-05-07] MEDS ORDERED: propofoL 200 MG/20 ML VIAL As Ordered ONE (14:56)
[2023-05-07] MEDS ORDERED: LIDOCAINE 2% 100MG/5ML SDV (FOR ANES.) As Ordered ONE (14:56)
[2023-05-07] MEDS ORDERED: ROCURONIUM BROMIDE 50MG/5ML VIAL As Ordered ONE (14:56)
[2023-05-07] MEDS ORDERED: MIDAZOLAM INJ 2MG/2ML VIAL As Ordered ONE (14:57)
[2023-05-07] MEDS ORDERED: OXYC1TAB23 PO (15:14)
[2023-05-07] MEDS ORDERED: dexmedeTOMIDine (4MCG/ML)200MCG/50ML BTL (PRECEDEX) As Ordered ONE (16:20)
[2023-05-07] MEDS ORDERED: KETAMINE HCL 200MG/20ML VIAL As Ordered ONE (16:20)
[2023-05-07] MEDS ORDERED: ONDANSETRON 4MG 2ML VIAL IV PRN (16:30)
[2023-05-07] MEDS ORDERED: HYDROMORPHONE HCL 0.5 MG/ 0.5 ML SYRINGE IV PRN (16:30)
[2023-05-07] MEDS ORDERED: oxyCODONE 5MG TAB PO PRN (16:30)
[2023-05-07] MEDS ORDERED: fentaNYL 100 MCG/2 ML INJECTION IV PRN (16:30)
[2023-05-07 17:15] VITALS: BP 132/65; TEMP 97.7; O2SAT 99
== END 2023-05-07 17:45 | disposition home or self-care (01) ==
LOC: M SDC 13:17
PROVIDERS: ATTEND Specialist
DX: N80.9 Endometriosis, unspecified (principal); R10.2 Pelvic and perineal pain; I10 Essential (primary) hypertension; D64.9 Anemia, unspecified; F41.9 Anxiety disorder, unspecified; F32.A Depression, unspecified; R51.9 Headache, unspecified; J45.909 Unspecified asthma, uncomplicated; Z98.84 Bariatric surgery status; G47.33 Obstructive sleep apnea (adult) (pediatric); Z79.51 Long term (current) use of inhaled steroids; Z79.899 Other long term (current) drug therapy; Z91.041 Radiographic dye allergy status; Z88.0 Allergy status to penicillin; Z88.1 Allergy status to other antibiotic agents; Z88.2 Allergy status to sulfonamides
CPT/HCPCS: 36415; 58578; 58662; 81025; 85027; J0131; J0665; J1100; J1885; J2250; J2405; J3010

== ENCOUNTER 2023-05-14 01:01 | Emergency (ER) | payer OTHER ==
[~2023-05-14] VITALS: Ht 165.1 cm; Wt 107.2 kg
[2023-05-14 02:04] LABS: BASO % 0.5 % (0.0-1.0); EOS # 0.2 10^3/uL (0.0-0.5); EOS % 2.4 % (0.0-3.0); HEMATOCRIT 36.8 % (36.0-47.0); HEMOGLOBIN 11.9 g/dl (12.0-15.5); LYMPH # 2.7 10^3/uL (1.5-5.0); LYMPH % 30.9 % (24.0-44.0); MEAN CORPUSCULAR HEMOGLOBIN 27.7 pg (27.0-33.0); MEAN CORPUSCULAR HGB CONC 32.3 g/dl (32.0-36.5); MEAN CORPUSCULAR VOLUME 85.8 fl (80.0-96.0); MONO # 0.6 10^3/uL (0.0-0.8); MONO % 6.3 % (2.0-8.0); NEUTROPHILS # 5.2 10^3/uL (1.5-8.5); NEUTROPHILS % 59.6 % (36.0-66.0); PLATELET COUNT, AUTOMATED 242 10^3/uL (150-450); RED BLOOD COUNT 4.29 10^6/uL (4.00-5.40); WHITE BLOOD COUNT 8.7 10^3/uL (4.0-10.0)
[2023-05-14 02:27] LABS: LIPASE 40 U/L (12-53)
[2023-05-14 02:30] LABS: ALBUMIN 3.7 G/DL (3.2-5.2); ALKALINE PHOSPHATASE 101 U/L (46-116); ALT/SGPT 19 U/L (7.0-40); AST/SGOT 14 U/L (<34); BILIRUBIN,DIRECT < 0.1 MG/DL (<0.4); BILIRUBIN,TOTAL 0.2 MG/DL (0.3-1.2); BLOOD UREA NITROGEN 17 MG/DL (9-23); CARBON DIOXIDE LEVEL 28 MMOL/L (20-31); CHLORIDE LEVEL 106 MMOL/L (98-107); CREATININE FOR GFR 0.73 MG/DL (0.55-1.30); GLOMERULAR FILTRATION RATE > 60.0 (>60); GLUCOSE, FASTING 85 MG/DL (60-100); POTASSIUM SERUM 4.2 MMOL/L (3.5-5.1); SODIUM LEVEL 142 MMOL/L (136-145); TOTAL PROTEIN 7.2 G/DL (5.7-8.2)
[2023-05-14 02:31] VITALS: BP 178/86; TEMP 97.7; O2SAT 100
[2023-05-14 02:40] LABS: HCG, SERUM QUALITATIVE NEGATIVE (NEGATIVE)
== END 2023-05-14 03:37 | disposition left against medical advice (07) ==
LOC: M ED 01:01
DX: Z53.21 Procedure and treatment not carried out due to patient leaving prior to being seen by health care provider (principal)

== ENCOUNTER → 2023-08-19 | Outpatient (CLI) | payer OTHER ==
[2023-08-19 11:44] LABS: BLOOD UREA NITROGEN 14 MG/DL (9-23); CARBON DIOXIDE LEVEL 28 MMOL/L (20-31); CHLORIDE LEVEL 109 MMOL/L (98-107); CREATININE FOR GFR 0.71 MG/DL (0.55-1.30); GLOMERULAR FILTRATION RATE > 60.0 (>60); GLUCOSE, FASTING 85 MG/DL (60-100); POTASSIUM SERUM 3.9 MMOL/L (3.5-5.1); SODIUM LEVEL 141 MMOL/L (136-145)
== END ==
LOC: M LAB 10:20
PROVIDERS: ATTEND Family Medicine
DX: Z01.818 Encounter for other preprocedural examination (principal)
CPT/HCPCS: 36415; 80048; G0463

== ENCOUNTER 2023-09-06 10:18 | Outpatient (RCR) | payer OTHER | END 2023-09-30 | LOC: M PT 10:18 | PROVIDERS: ATTEND Specialist | DX: M62.89 Other specified disorders of muscle (principal) ==

== ENCOUNTER → 2023-09-14 | Outpatient (REF) | payer OTHER ==
[2023-09-14 22:42] LABS: INFLUENZA A AMPLIFICATION NEGATIVE (NEGATIVE); INFLUENZA B AMPLIFICATION NEGATIVE (NEGATIVE)
== END ==
LOC: M LAB REF 20:31
PROVIDERS: ATTEND Nurse Practitioner Family
DX: J06.9 Acute upper respiratory infection, unspecified (principal); Z20.828 Contact with and (suspected) exposure to other viral communicable diseases

== ENCOUNTER → 2023-09-17 | Outpatient (REF) | payer OTHER ==
[2023-09-17 17:13] LABS: RSV AMPLIFICATION NEGATIVE (NEGATIVE)
== END ==
LOC: M SFHCLERA 16:21
PROVIDERS: ATTEND Physician Assistant
DX: J22 Unspecified acute lower respiratory infection (principal)

== ENCOUNTER → 2023-10-08 | Outpatient (CLI) | payer OTHER ==
[2023-10-08 09:52] LABS: BASO # 0.1 10^3/uL (0.0-0.2); EOS # 0.1 10^3/uL (0.0-0.5); EOS % 1.4 % (0.0-3.0); HEMATOCRIT 42.7 % (36.0-47.0); HEMOGLOBIN 14.2 g/dl (12.0-15.5); LYMPH # 2.1 10^3/uL (1.5-5.0); LYMPH % 28.7 % (24.0-44.0); MEAN CORPUSCULAR HEMOGLOBIN 29.8 pg (27.0-33.0); MEAN CORPUSCULAR HGB CONC 33.3 g/dl (32.0-36.5); MEAN CORPUSCULAR VOLUME 89.7 fl (80.0-96.0); MONO # 0.5 10^3/uL (0.0-0.8); MONO % 6.2 % (2.0-8.0); NEUTROPHILS # 4.5 10^3/uL (1.5-8.5); NEUTROPHILS % 62.3 % (36.0-66.0); PLATELET COUNT, AUTOMATED 239 10^3/uL (150-450); RED BLOOD COUNT 4.76 10^6/uL (4.00-5.40); WHITE BLOOD COUNT 7.2 10^3/uL (4.0-10.0)
[2023-10-08 10:20] LABS: ALBUMIN 3.9 G/DL (3.2-5.2); ALKALINE PHOSPHATASE 86 U/L (46-116); ALT/SGPT 22 U/L (7.0-40); AST/SGOT 10 U/L (<34); BILIRUBIN,TOTAL 0.5 MG/DL (0.3-1.2); BLOOD UREA NITROGEN 17 MG/DL (9-23); CALCIUM LEVEL 9.3 MG/DL (8.5-10.1); CARBON DIOXIDE LEVEL 28 MMOL/L (20-31); CHLORIDE LEVEL 108 MMOL/L (98-107); CHOLESTEROL LEVEL 167 MG/DL (<200); CREATININE FOR GFR 0.73 MG/DL (0.55-1.30); GLOMERULAR FILTRATION RATE > 60.0 (>60); GLUCOSE, FASTING 82 MG/DL (60-100); HDL CHOLESTEROL 61.8 MG/DL (>40); LDL CHOLESTEROL 88.2 MG/DL (<100); NON-HDL-C 105.2 MG/DL; POTASSIUM SERUM 4.1 MMOL/L (3.5-5.1); SODIUM LEVEL 142 MMOL/L (136-145); TOTAL PROTEIN 7.6 G/DL (5.7-8.2); TRIGLYCERIDES LEVEL 85 MG/DL (<150)
[2023-10-08 10:22] LABS: HEMOGLOBIN A1c 5.1 % (4.0-6.0)
[2023-10-08 10:32] LABS: FERRITIN 32.8 NG/ML (7.3-270.7); FOLATE > 24.0 NG/ML (>5.4); TOTAL 25(OH) VITAMIN D 22.6 NG/ML (20.0-100.0)
[2023-10-08 10:33] LABS: VITAMIN B12 LEVEL 706 PG/ML (211-911)
== END ==
LOC: M LAB 08:13
PROVIDERS: ATTEND Physician Assistant
DX: D50.9 Iron deficiency anemia, unspecified (principal); Z98.84 Bariatric surgery status

== ENCOUNTER → 2023-10-08 | Outpatient (CLI) | payer OTHER ==
[2023-10-08 09:53] LABS: BASO # 0.1 10^3/uL (0.0-0.2); BASO % 0.7 % (0.0-1.0); EOS # 0.1 10^3/uL (0.0-0.5); EOS % 1.3 % (0.0-3.0); HEMATOCRIT 42.4 % (36.0-47.0); LYMPH % 28.9 % (24.0-44.0); MEAN CORPUSCULAR HEMOGLOBIN 29.9 pg (27.0-33.0); MEAN CORPUSCULAR VOLUME 90.4 fl (80.0-96.0); MONO # 0.4 10^3/uL (0.0-0.8); MONO % 6.3 % (2.0-8.0); NEUTROPHILS # 4.3 10^3/uL (1.5-8.5); NEUTROPHILS % 62.4 % (36.0-66.0); PLATELET COUNT, AUTOMATED 247 10^3/uL (150-450); RED BLOOD COUNT 4.69 10^6/uL (4.00-5.40); WHITE BLOOD COUNT 6.9 10^3/uL (4.0-10.0)
[2023-10-08 10:20] LABS: ALBUMIN 3.9 G/DL (3.2-5.2); ALKALINE PHOSPHATASE 89 U/L (46-116); ALT/SGPT 23 U/L (7.0-40); AST/SGOT 12 U/L (<34); BILIRUBIN,TOTAL 0.5 MG/DL (0.3-1.2); BLOOD UREA NITROGEN 16 MG/DL (9-23); CALCIUM LEVEL 8.9 MG/DL (8.5-10.1); CARBON DIOXIDE LEVEL 28 MMOL/L (20-31); CHLORIDE LEVEL 112 MMOL/L (98-107); CHOLESTEROL LEVEL 165 MG/DL (<200); CHOLESTEROL RISK RATIO 2.89 (<5); CREATININE FOR GFR 0.78 MG/DL (0.55-1.30); GLOMERULAR FILTRATION RATE > 60.0 (>60); GLUCOSE, FASTING 83 MG/DL (60-100); LDL CHOLESTEROL 91.2 MG/DL (<100); POTASSIUM SERUM 4.4 MMOL/L (3.5-5.1); SODIUM LEVEL 144 MMOL/L (136-145); TOTAL PROTEIN 7.6 G/DL (5.7-8.2); TRIGLYCERIDES LEVEL 84 MG/DL (<150)
[2023-10-08 10:22] LABS: FREE T4 0.95 NG/DL (0.89-1.76); THYROID STIMULATING HORMONE 1.062 uIU/ML (0.55-4.78)
[2023-10-08 10:23] LABS: HEMOGLOBIN A1c 5.1 % (4.0-6.0)
== END ==
LOC: M LAB 08:06
PROVIDERS: ATTEND Psychiatry & Neurology Psychiatry
DX: F33.1 Major depressive disorder, recurrent, moderate (principal)

== ENCOUNTER → 2023-12-07 | Outpatient (REF) | payer OTHER ==
[~2023-12-07] MED LIST changes: +FLUO-290 PO; -FLUO10CA18 PO
== END ==
LOC: M SFHCWAGY 15:03
PROVIDERS: ATTEND Nurse Practitioner Family
DX: Z12.4 Encounter for screening for malignant neoplasm of cervix (principal); R87.612 Low grade squamous intraepithelial lesion on cytologic smear of cervix (LGSIL); R87.618 Other abnormal cytological findings on specimens from cervix uteri
CPT/HCPCS: 87624; G0123

== ENCOUNTER → 2024-01-13 | Outpatient (CLI) | payer OTHER ==
[~2024-01-13] MED LIST changes: +ONDA-282 PO; -ONDA4TAB6 PO
== END ==
LOC: M WHC 08:56
PROVIDERS: ATTEND Nurse Practitioner Family
DX: R10.2 Pelvic and perineal pain (principal)

== ENCOUNTER → 2024-01-25 | Outpatient (REF) | payer OTHER | LOC: M SFHCDERM 17:35 | PROVIDERS: ATTEND Physician Assistant | DX: D22.5 Melanocytic nevi of trunk (principal) ==

== ENCOUNTER 2024-02-21 20:54 | Emergency (ER) | payer OTHER ==
[~2024-02-21] VITALS: Ht 165.1 cm; Wt 100.8 kg
[2024-02-22 01:37] VITALS: BP 139/75; TEMP 98; O2SAT 99
[2024-02-22] MEDS ORDERED: PRED20TA PO (02:03)
== END 2024-02-22 02:50 | disposition home or self-care (01) ==
LOC: M ED 20:54
DX: S86.111A Strain of other muscle(s) and tendon(s) of posterior muscle group at lower leg level, right leg, initial encounter (principal); X58.XXXA Exposure to other specified factors, initial encounter; Y92.410 Unspecified street and highway as the place of occurrence of the external cause; Y93.9 Activity, unspecified; Y99.9 Unspecified external cause status; I10 Essential (primary) hypertension; E03.9 Hypothyroidism, unspecified; F41.1 Generalized anxiety disorder; F32.A Depression, unspecified; Z79.899 Other long term (current) drug therapy; Z88.0 Allergy status to penicillin; Z88.2 Allergy status to sulfonamides; Z88.8 Allergy status to other drugs, medicaments and biological substances; Z91.041 Radiographic dye allergy status

== ENCOUNTER → 2024-05-23 | Outpatient (CLI) | payer OTHER ==
[~2024-05-23] MED LIST changes: +PRED20TA PO
[2024-05-23 18:09] LABS: BASO # 0.1 10^3/uL (0.0-0.2); BASO % 0.7 % (0.0-1.0); EOS # 0.1 10^3/uL (0.0-0.5); EOS % 0.9 % (0.0-3.0); HEMATOCRIT 40.1 % (36.0-47.0); HEMOGLOBIN 13.3 g/dl (12.0-15.5); LYMPH # 2.3 10^3/uL (1.5-5.0); LYMPH % 28.3 % (24.0-44.0); MEAN CORPUSCULAR HEMOGLOBIN 29.4 pg (27.0-33.0); MEAN CORPUSCULAR HGB CONC 33.2 g/dl (32.0-36.5); MEAN CORPUSCULAR VOLUME 88.5 fl (80.0-96.0); MONO # 0.4 10^3/uL (0.0-0.8); MONO % 4.5 % (2.0-8.0); NEUTROPHILS # 5.3 10^3/uL (1.5-8.5); NEUTROPHILS % 65.4 % (36.0-66.0); PLATELET COUNT, AUTOMATED 286 10^3/uL (150-450); RED BLOOD COUNT 4.53 10^6/uL (4.00-5.40); WHITE BLOOD COUNT 8.1 10^3/uL (4.0-10.0)
[2024-05-23 18:14] LABS: ERYTHROCYTE SEDIMENTATION RATE 14 mm/hr (0-20)
[2024-05-23 18:33] LABS: ALKALINE PHOSPHATASE 102 U/L (46-116); ALT/SGPT 19 U/L (7.0-40); AST/SGOT 11 U/L (<34); BILIRUBIN,TOTAL 0.6 MG/DL (0.3-1.2); BLOOD UREA NITROGEN 15 MG/DL (9-23); CALCIUM LEVEL 9.7 MG/DL (8.5-10.1); CARBON DIOXIDE LEVEL 25 MMOL/L (20-31); CHLORIDE LEVEL 111 MMOL/L (98-107); CREATININE FOR GFR 0.84 MG/DL (0.55-1.30); GLOMERULAR FILTRATION RATE > 60.0 (>60); GLUCOSE, FASTING 91 MG/DL (60-100); POTASSIUM SERUM 3.7 MMOL/L (3.5-5.1); SODIUM LEVEL 142 MMOL/L (136-145)
[2024-05-23 18:35] LABS: RHEUMATOID FACTOR QUANT 6.1 IU/ML (<14)
== END ==
LOC: M LAB 16:48
PROVIDERS: ATTEND Physician Assistant
DX: R53.82 Chronic fatigue, unspecified (principal)

== ENCOUNTER → 2024-05-30 | Outpatient (CLI) | payer OTHER ==
[~2024-05-30] MED LIST changes: +PROHANCE 279.3MG/ML 15ML VIAL As Ordered ONE; +PROHANCE 279.3MG/ML 5ML VIAL As Ordered ONE
== END ==
LOC: M RAD 10:22
PROVIDERS: ATTEND Nurse Practitioner Family
DX: G93.2 Benign intracranial hypertension (principal); R51.9 Headache, unspecified
CPT/HCPCS: 70553; A9576

== ENCOUNTER → 2024-06-12 | Outpatient (REF) | payer OTHER ==
[~2024-06-12] MED LIST changes: +DOXY100C3; +HYDR1CAP25 PO; +LEVO75TA4 PO; +LEXA1TAB2 PO; -PROHANCE 279.3MG/ML 15ML VIAL As Ordered ONE; -PROHANCE 279.3MG/ML 5ML VIAL As Ordered ONE
== END ==
LOC: M SFHCWAGY 12:34
PROVIDERS: ATTEND Nurse Practitioner Family
DX: N73.9 Female pelvic inflammatory disease, unspecified (principal)

== ENCOUNTER 2024-06-13 14:56 | Emergency (ER) | payer OTHER ==
[~2024-06-13] VITALS: Ht 165.1 cm; Wt 93.7 kg
[~2024-06-13 14:56] MED LIST changes: -DOXY100C3; -HYDR1CAP25 PO; -LEVO75TA4 PO; -LEXA1TAB2 PO
[2024-06-13 14:59] VITALS: TEMP 96.5
[2024-06-13] MEDS ORDERED: LEXA1TAB2 PO (15:17)
[2024-06-13] MEDS ORDERED: DOXY100C3 (15:17)
[2024-06-13] MEDS ORDERED: HYDR1CAP25 PO (15:17)
[2024-06-13] MEDS ORDERED: LEVO75TA4 PO (15:17)
[2024-06-13 18:07] LABS: BLOOD UREA NITROGEN 15 MG/DL (9-23); CALCIUM LEVEL 9.1 MG/DL (8.5-10.1); CARBON DIOXIDE LEVEL 24 MMOL/L (20-31); CHLORIDE LEVEL 112 MMOL/L (98-107); CREATININE FOR GFR 0.83 MG/DL (0.55-1.30); GLOMERULAR FILTRATION RATE > 60.0 (>60); GLUCOSE, FASTING 82 MG/DL (60-100); MAGNESIUM LEVEL 1.8 MG/DL (1.8-2.4); SODIUM LEVEL 142 MMOL/L (136-145)
[2024-06-13] MEDS: ALPRAZolam 0.25 MG TAB PO ONE (18:46)
[2024-06-13] MEDS: NS 1,000 ML IV ONE (22:05)
[2024-06-13] MEDS ORDERED: PROHANCE 279.3MG/ML 5ML VIAL As Ordered ONE (22:14)
[2024-06-13] MEDS ORDERED: PROHANCE 279.3MG/ML 15ML VIAL As Ordered ONE (22:14)
[2024-06-14 01:00] VITALS: BP 138/76; O2SAT 100
== END 2024-06-14 01:26 | disposition home or self-care (01) ==
LOC: M ED 14:56
DX: R51.9 Headache, unspecified (principal); R29.818 Other symptoms and signs involving the nervous system; J45.909 Unspecified asthma, uncomplicated; E28.2 Polycystic ovarian syndrome; I10 Essential (primary) hypertension; E03.9 Hypothyroidism, unspecified; F41.0 Panic disorder [episodic paroxysmal anxiety]; Z79.83 Long term (current) use of bisphosphonates; Z79.899 Other long term (current) drug therapy; Z88.0 Allergy status to penicillin; Z88.1 Allergy status to other antibiotic agents; Z88.2 Allergy status to sulfonamides; Z91.041 Radiographic dye allergy status
CPT/HCPCS: 36415; 70450; 70544; 70545; 80048; 83735; 99285; A9576

== ENCOUNTER → 2024-07-06 | Outpatient (REF) | payer OTHER ==
[~2024-07-06] MED LIST changes: +DOXY100C3; +HYDR1CAP25 PO; +LEVO75TA4 PO; +LEXA1TAB2 PO
[2024-07-06 17:14] LABS: CHOLESTEROL RISK RATIO 2.7 (<5); HDL CHOLESTEROL 52.8 MG/DL (>40); LDL CHOLESTEROL 76.8 MG/DL (<100); NON-HDL-C 90.2 MG/DL
[2024-07-06 17:15] LABS: FREE T4 1.13 NG/DL (0.89-1.76); THYROID STIMULATING HORMONE 1.32 uIU/ML (0.55-4.78)
[2024-07-06 17:16] LABS: TOTAL 25(OH) VITAMIN D 17.4 NG/ML (20.0-100.0)
== END ==
LOC: M SFHCLERA 14:14
DX: E03.9 Hypothyroidism, unspecified (principal); I10 Essential (primary) hypertension; E55.9 Vitamin D deficiency, unspecified

== ENCOUNTER → 2024-08-01 | Outpatient (CLI) | payer OTHER | LOC: M PLAIMG 09:50 | PROVIDERS: ATTEND Psychiatry & Neurology Pain Medicine | DX: G43.709 Chronic migraine without aura, not intractable, without status migrainosus (principal); G44.86 Cervicogenic headache ==

== ENCOUNTER 2024-09-25 16:19 | Emergency (ER) | payer OTHER ==
[2024-09-25 17:35] LABS: BASO # 0.1 10^3/uL (0.0-0.2); BASO % 0.9 % (0.0-1.0); EOS # 0.1 10^3/uL (0.0-0.5); EOS % 1.3 % (0.0-3.0); HEMATOCRIT 40.7 % (36.0-47.0); HEMOGLOBIN 13.5 g/dl (12.0-15.5); LYMPH # 2.4 10^3/uL (1.5-5.0); LYMPH % 27.8 % (24.0-44.0); MEAN CORPUSCULAR HEMOGLOBIN 29.8 pg (27.0-33.0); MEAN CORPUSCULAR HGB CONC 33.2 g/dl (32.0-36.5); MEAN CORPUSCULAR VOLUME 89.8 fl (80.0-96.0); MONO # 0.4 10^3/uL (0.0-0.8); MONO % 5.1 % (2.0-8.0); NEUTROPHILS # 5.5 10^3/uL (1.5-8.5); NEUTROPHILS % 64.5 % (36.0-66.0); PLATELET COUNT, AUTOMATED 281 10^3/uL (150-450); RED BLOOD COUNT 4.53 10^6/uL (4.00-5.40); WHITE BLOOD COUNT 8.5 10^3/uL (4.0-10.0)
[2024-09-25 18:04] LABS: BLOOD UREA NITROGEN 16 MG/DL (9-23); CALCIUM LEVEL 9.1 MG/DL (8.5-10.1); CARBON DIOXIDE LEVEL 24 MMOL/L (20-31); CHLORIDE LEVEL 109 MMOL/L (98-107); CK-MB VALUE MASS 1.7 NG/ML (<3.6); CPK CREATINE PHOSPHOKINASE 88 U/L (34-145); CREATININE FOR GFR 0.95 MG/DL (0.55-1.30); GLOMERULAR FILTRATION RATE > 60.0 (>60); GLUCOSE, FASTING 77 MG/DL (60-100); MB/CK RELATIVE INDEX 1.93 (< OR =4); POTASSIUM SERUM 4.1 MMOL/L (3.5-5.1); SODIUM LEVEL 143 MMOL/L (136-145)
[2024-09-25 20:05] LABS: CK-MB VALUE MASS 1.6 NG/ML (<3.6)
[2024-09-25 20:06] LABS: CPK CREATINE PHOSPHOKINASE 77 U/L (34-145); MB/CK RELATIVE INDEX 2.07 (< OR =4)
[2024-09-26 02:12] VITALS: BP 152/82; TEMP 97.3; O2SAT 99
== END 2024-09-26 02:27 | disposition left against medical advice (07) ==
LOC: M ED 16:19
DX: Z53.21 Procedure and treatment not carried out due to patient leaving prior to being seen by health care provider (principal)

== ENCOUNTER → 2024-10-23 | Outpatient (CLI) | payer OTHER | LOC: M EKG 14:17 | DX: R00.2 Palpitations (principal) ==

== ENCOUNTER → 2024-11-02 | Outpatient (CLI) | payer OTHER ==
[2024-11-02 17:21] LABS: BLOOD UREA NITROGEN 19 MG/DL (9-23); CALCIUM LEVEL 9.2 MG/DL (8.5-10.1); CARBON DIOXIDE LEVEL 28 MMOL/L (20-31); CHLORIDE LEVEL 109 MMOL/L (98-107); CREATININE FOR GFR 0.84 MG/DL (0.55-1.30); GLOMERULAR FILTRATION RATE > 60.0 (>60); GLUCOSE, FASTING 62 MG/DL (60-100); POTASSIUM SERUM 4.2 MMOL/L (3.5-5.1); SODIUM LEVEL 144 MMOL/L (136-145)
== END ==
LOC: M LAB 16:08
PROVIDERS: ATTEND Physician Assistant
DX: I10 Essential (primary) hypertension (principal)

== ENCOUNTER → 2024-11-09 | Outpatient (CLI) | payer OTHER ==
[2024-11-09 17:05] LABS: BASO # 0.1 10^3/uL (0.0-0.2); BASO % 0.7 % (0.0-1.0); EOS # 0.1 10^3/uL (0.0-0.5); EOS % 0.6 % (0.0-3.0); HEMATOCRIT 41.4 % (36.0-47.0); HEMOGLOBIN 13.4 g/dl (12.0-15.5); LYMPH # 2.3 10^3/uL (1.5-5.0); LYMPH % 27.2 % (24.0-44.0); MEAN CORPUSCULAR HEMOGLOBIN 29.8 pg (27.0-33.0); MEAN CORPUSCULAR HGB CONC 32.4 g/dl (32.0-36.5); MONO # 0.4 10^3/uL (0.0-0.8); MONO % 4.6 % (2.0-8.0); NEUTROPHILS # 5.6 10^3/uL (1.5-8.5); NEUTROPHILS % 66.4 % (36.0-66.0); PLATELET COUNT, AUTOMATED 267 10^3/uL (150-450); WHITE BLOOD COUNT 8.5 10^3/uL (4.0-10.0)
[2024-11-09 17:18] LABS: ERYTHROCYTE SEDIMENTATION RATE 15 mm/hr (0-20)
== END ==
LOC: M PLALAB 15:00
PROVIDERS: ATTEND Physician Assistant
DX: R06.02 Shortness of breath (principal)

== ENCOUNTER → 2024-11-10 | Outpatient (CLI) | payer OTHER ==
[~2024-11-10] MED LIST changes: +ISOVUE-370 76% 100ML VIAL As Ordered ONE
== END ==
LOC: M RAD 08:08
PROVIDERS: ATTEND Physician Assistant
DX: R06.02 Shortness of breath (principal)

== ENCOUNTER 2024-11-28 14:50 | Emergency (ER) | payer OTHER ==
[~2024-11-28] VITALS: Ht 165.1 cm; Wt 87.0 kg
[~2024-11-28 14:50] MED LIST changes: -ISOVUE-370 76% 100ML VIAL As Ordered ONE; +TOPI-256 PO; -TOPI25TA10 PO
[2024-11-28 15:54] LABS: BASO # 0.1 10^3/uL (0.0-0.2); BASO % 0.6 % (0.0-1.0); EOS # 0.1 10^3/uL (0.0-0.5); EOS % 0.6 % (0.0-3.0); HEMATOCRIT 38.4 % (36.0-47.0); HEMOGLOBIN 12.6 g/dl (12.0-15.5); LYMPH # 2.2 10^3/uL (1.5-5.0); LYMPH % 27.2 % (24.0-44.0); MEAN CORPUSCULAR HEMOGLOBIN 29.8 pg (27.0-33.0); MEAN CORPUSCULAR HGB CONC 32.8 g/dl (32.0-36.5); MEAN CORPUSCULAR VOLUME 90.8 fl (80.0-96.0); MONO # 0.4 10^3/uL (0.0-0.8); MONO % 4.6 % (2.0-8.0); NEUTROPHILS # 5.4 10^3/uL (1.5-8.5); NEUTROPHILS % 66.8 % (36.0-66.0); PLATELET COUNT, AUTOMATED 230 10^3/uL (150-450); RED BLOOD COUNT 4.23 10^6/uL (4.00-5.40); WHITE BLOOD COUNT 8.1 10^3/uL (4.0-10.0)
[2024-11-28 16:26] LABS: BLOOD UREA NITROGEN 19 MG/DL (9-23); CALCIUM LEVEL 8.7 MG/DL (8.5-10.1); CARBON DIOXIDE LEVEL 26 MMOL/L (20-31); CHLORIDE LEVEL 109 MMOL/L (98-107); CK-MB VALUE MASS < 1.0 NG/ML (<3.6); CPK CREATINE PHOSPHOKINASE 69 U/L (34-145); GLOMERULAR FILTRATION RATE > 90.0 (>60); GLUCOSE, FASTING 66 MG/DL (60-100); MB/CK RELATIVE INDEX 1.44 (< OR =4); POTASSIUM SERUM 3.6 MMOL/L (3.5-5.1); SODIUM LEVEL 144 MMOL/L (136-145)
[2024-11-28 17:21] LABS: CK-MB VALUE MASS < 1.0 NG/ML (<3.6)
[2024-11-28 17:24] LABS: CPK CREATINE PHOSPHOKINASE 68 U/L (34-145); MB/CK RELATIVE INDEX 1.47 (< OR =4)
[2024-11-28 17:52] LABS: MAGNESIUM LEVEL 1.8 MG/DL (1.8-2.4)
[2024-11-28 17:57] LABS: FREE T4 1.06 NG/DL (0.89-1.76); THYROID STIMULATING HORMONE 1.099 uIU/ML (0.55-4.78)
[2024-11-28] MEDS: NS (Normal Saline) 0.9% 1,000 ML IV ONE (19:11)
[2024-11-28 20:45] VITALS: BP 113/68; TEMP 97.4; O2SAT 100
== END 2024-11-28 20:55 | disposition home or self-care (01) ==
LOC: M ED 14:50
DX: R07.9 Chest pain, unspecified (principal); R55 Syncope and collapse; G90.A Postural orthostatic tachycardia syndrome [POTS]; F41.9 Anxiety disorder, unspecified; F32.A Depression, unspecified; G43.909 Migraine, unspecified, not intractable, without status migrainosus; E03.9 Hypothyroidism, unspecified; Z88.1 Allergy status to other antibiotic agents; Z88.2 Allergy status to sulfonamides; Z88.0 Allergy status to penicillin; Z91.041 Radiographic dye allergy status; Z79.83 Long term (current) use of bisphosphonates; Z79.899 Other long term (current) drug therapy

== ENCOUNTER → 2024-11-30 | Outpatient (CLI) | payer OTHER | LOC: M CARPUL 08:16 | PROVIDERS: ATTEND Physician Assistant | DX: R07.9 Chest pain, unspecified (principal) ==

== ENCOUNTER → 2024-12-12 | Outpatient (REF) | payer OTHER ==
[~2024-12-12] MED LIST changes: +CHOL25CA2 PO; -VITA100054 PO
[2024-12-12 18:40] LABS: Trichomonas vaginalis (AMP) NOT DETECTED (NEGATIVE)
[2024-12-12 19:04] LABS: GC DNA AMPLIFICATION NEGATIVE (NEGATIVE)
[2024-12-14 15:04] LABS: HPV APTIMA Not Detected (Not Detected)
== END ==
LOC: M SFHCWAGY 16:59
PROVIDERS: ATTEND Nurse Practitioner Family
DX: N39.0 Urinary tract infection, site not specified (principal)

== ENCOUNTER → 2025-01-29 | Outpatient (REF) | payer OTHER | LOC: M SFHCDERM 17:53 | PROVIDERS: ATTEND Physician Assistant | DX: L85.9 Epidermal thickening, unspecified (principal) ==

== ENCOUNTER 2025-02-18 23:32 | Inpatient (IN) | payer OTHER ==
[~2025-02-18] VITALS: Ht 165.1 cm; Wt 95.7 kg
[~2025-02-18 23:32] MED LIST changes: -PROZ20CA11 PO; +PROZ20CA12 PO
[2025-02-19 00:16] LABS: VENOUS BASE EXCESS -2.2 (-2.0-2.0); VENOUS HCO3 24.2 MMOL/L (23.0-27.0); VENOUS O2 SATURATION 74.7 % (60.0-80.0); VENOUS PARTIAL PRESSURE CO2 47.7 mmHg (38.0-50.0); VENOUS PARTIAL PRESSURE O2 42.7 mmHg (30.0-50.0); VENOUS PH 7.323 UNITS (7.330-7.430); VENOUS STANDARD HCO3 22.2 MMOL/L; VENOUS TOTAL CO2 25.7 MMOL/L (24.0-28.0)
[2025-02-19 00:39] LABS: BASO # 0.1 10^3/uL (0.0-0.2); BASO % 0.5 % (0.0-1.0); EOS # 0.1 10^3/uL (0.0-0.5); EOS % 0.5 % (0.0-3.0); LYMPH # 1.9 10^3/uL (1.5-5.0); LYMPH % 15.4 % (24.0-44.0); MONO # 0.5 10^3/uL (0.0-0.8); MONO % 4.0 % (2.0-8.0); NEUTROPHILS # 10.0 10^3/uL (1.5-8.5); NEUTROPHILS % 79.1 % (36.0-66.0); PLATELET COUNT, AUTOMATED 235 10^3/uL (150-450)
[2025-02-19 00:44] LABS: ETHYL ALCOHOL (ETHANOL) < 0.003 % (0.000-0.010)
[2025-02-19 00:45] LABS: CPK CREATINE PHOSPHOKINASE 51 U/L (34-145); HCG, SERUM QUALITATIVE NEGATIVE (NEGATIVE); SALICYLATE LEVEL < 3.0 MG/DL (<30)
[2025-02-19 00:46] LABS: ALT/SGPT 23 U/L (7.0-40); AST/SGOT 23 U/L (<34); CALCIUM LEVEL 8.8 MG/DL (8.5-10.1); CARBON DIOXIDE LEVEL 28 MMOL/L (20-31); CHLORIDE LEVEL 104 MMOL/L (98-107); CREATININE FOR GFR 0.79 MG/DL (0.55-1.30); GLOMERULAR FILTRATION RATE > 90.0 (>60); POTASSIUM SERUM 4.2 MMOL/L (3.5-5.1); SODIUM LEVEL 142 MMOL/L (136-145)
[2025-02-19] MEDS: NS (Normal Saline) 0.9% 1,000 ML IV ONE (01:16)
[2025-02-19] MEDS ORDERED: SEMA0.252 SC (01:47)
[2025-02-19] MEDS ORDERED: CLON0.5T2 PO (01:47)
[2025-02-19] MEDS ORDERED: METO1TAB87 PO (01:47)
[2025-02-19] MEDS ORDERED: TRAZ-257 PO (01:47)
[2025-02-19] MEDS ORDERED: VYVA1CAP PO (01:47)
[2025-02-19] MEDS ORDERED: LISI40TA10 PO (01:47)
[2025-02-19] MEDS ORDERED: HOME MED LIST COMPLETE! XX SCH (01:50)
[2025-02-19 02:23] LABS: AMPHETAMINES LEVEL URINE NEGATIVE (NEGATIVE); BARBITURATES URINE NEGATIVE (NEGATIVE); CANNABINOIDS URINE NEGATIVE (NEGATIVE); COCAINE METABOLITE URINE NEGATIVE (NEGATIVE); METHADONE URINE NEGATIVE (NEGATIVE); OPIATES URINE NEGATIVE (NEGATIVE); PHENCYCLIDINE URINE NEGATIVE (NEGATIVE)
[2025-02-19 02:25] LABS: BENZODIAZEPINES URINE POSITIVE (NEGATIVE)
[2025-02-19] MEDS: NICOTINE 14 MG/24 HR TRANSDERMAL TD SCH (09:00)
[2025-02-19] MEDS ORDERED: IBUPROFEN 400 MG TAB PO PRN (16:05)
[2025-02-19] MEDS ORDERED: MAALOX 30 ML SUSP *UDC PO PRN (16:05)
[2025-02-19] MEDS ORDERED: clonazePAM 0.5 MG TAB PO PRN (16:05)
[2025-02-19] MEDS ORDERED: LORazepam 1 MG TAB PO PRN (16:05)
[2025-02-19] MEDS ORDERED: HALOPERIDOL 5 MG TAB PO PRN (16:05)
[2025-02-19 18:20] VITALS: BP 138/72; TEMP 98; O2SAT 99
[2025-02-19] MEDS: TOPIRAMATE 25 MG TAB PO SCH (21:00)
[2025-02-19] MEDS: METOPROLOL TART 25 MG TABLET PO SCH (21:14)
[2025-02-19] MEDS: traZODone 50 MG TAB PO PRN (21:18)
[2025-02-19] MEDS: OLANZapine 5 MG TAB PO PRN (21:21)
[2025-02-20] MEDS: LEVOTHYROXINE 75 MCG TABLET (0.075 MG) PO SCH (06:11)
[2025-02-20 06:43] VITALS: BP 117/64; TEMP 97.1; O2SAT 98
[2025-02-20] MEDS: ESCITALOPRAM OXALATE 10 MG TABLET PO SCH (08:17)
[2025-02-20] MEDS: ACETAMINOPHEN 325 MG TAB PO PRN (14:10)
[2025-02-20 15:05] VITALS: BP 119/66; TEMP 97.7; O2SAT 98
[2025-02-21 06:39] VITALS: BP 94/53; TEMP 96.9; O2SAT 97
[2025-02-21 07:53] VITALS: BP 146/83; O2SAT 100
[2025-02-21] MEDS: ONDANSETRON 4MG TAB PO PRN (07:57)
[2025-02-21 15:14] VITALS: BP 137/81; TEMP 97.9; O2SAT 100
[2025-02-22 06:45] VITALS: BP 107/85; TEMP 98; O2SAT 97
[2025-02-22] MEDS: ONDANSETRON 4MG ORAL DISINTEGRATING TAB PO PRN (10:39)
[2025-02-22 15:34] VITALS: BP 119/67; TEMP 97; O2SAT 100
[2025-02-23 06:38] VITALS: BP 106/53; TEMP 96.7; O2SAT 99
[2025-02-23] MEDS: MOM 30 ML SUSPENSION UDC PO PRN (11:54)
[2025-02-23 15:29] VITALS: BP 116/59; TEMP 97.9; O2SAT 98
[2025-02-23] MEDS: traZODone 100 MG TAB PO PRN (21:48)
[2025-02-24 06:44] VITALS: BP 95/49; TEMP 98.1; O2SAT 94
[2025-02-24 16:00] VITALS: BP 117/58; TEMP 97.4; O2SAT 100
[2025-02-24] MEDS: FREMANEZUMAB SQ SCH (18:04)
[2025-02-25 06:59] VITALS: BP 114/67; TEMP 96.1; O2SAT 99
[2025-02-25 14:37] VITALS: BP 107/52; TEMP 97.5; O2SAT 99
[2025-02-26 06:36] VITALS: BP 140/75; TEMP 97.1; O2SAT 97
[2025-02-26] MEDS ORDERED: TRAZ-257 PO (07:26)
[2025-02-26] MEDS ORDERED: LEXA1TAB2 PO (07:26)
[2025-02-26] MEDS ORDERED: HYDR-3363 PO (07:26)
[2025-02-26 08:32] VITALS: BP 120/63
== END 2025-02-26 10:49 | disposition home or self-care (01) | DRG 885 ==
LOC: EDBD 23:32 → M ED 23:32 → M ED INP 02-19 16:02 → M PSY 02-19 18:16
PROVIDERS: ADMIT Internal Medicine; ATTEND Internal Medicine
DX: F33.2 Major depressive disorder, recurrent severe without psychotic features (principal); R45.851 Suicidal ideations; F41.1 Generalized anxiety disorder; F43.10 Post-traumatic stress disorder, unspecified; E28.2 Polycystic ovarian syndrome; E03.9 Hypothyroidism, unspecified; I73.00 Raynaud's syndrome without gangrene; Z63.5 Disruption of family by separation and divorce; J45.909 Unspecified asthma, uncomplicated; G43.909 Migraine, unspecified, not intractable, without status migrainosus; I10 Essential (primary) hypertension; L40.8 Other psoriasis; Z79.890 Hormone replacement therapy; Z79.899 Other long term (current) drug therapy

== ENCOUNTER → 2025-03-06 | Outpatient (REF) | payer OTHER ==
[~2025-03-06] MED LIST changes: +CLON0.5T2 PO; +LISI40TA10 PO; +METO1TAB87 PO; +SEMA0.252 SC; +TRAZ-257 PO; +VYVA1CAP PO
[2025-03-06 15:50] LABS: BASO # 0.1 10^3/uL (0.0-0.2); BASO % 1.1 % (0.0-1.0); EOS # 0.1 10^3/uL (0.0-0.5); EOS % 0.9 % (0.0-3.0); LYMPH # 1.9 10^3/uL (1.5-5.0); LYMPH % 29.9 % (24.0-44.0); MONO # 0.5 10^3/uL (0.0-0.8); MONO % 7.2 % (2.0-8.0); NEUTROPHILS # 3.9 10^3/uL (1.5-8.5); NEUTROPHILS % 60.4 % (36.0-66.0); PLATELET COUNT, AUTOMATED 224 10^3/uL (150-450)
[2025-03-06 15:51] LABS: C REACTIVE PROTEIN QUANTITATIV 0.57 MG/DL (<1.0)
[2025-03-06 15:52] LABS: ALT/SGPT 21 U/L (7.0-40); AST/SGOT 16 U/L (<34); CALCIUM LEVEL 9.4 MG/DL (8.5-10.1); CARBON DIOXIDE LEVEL 29 MMOL/L (20-31); CHLORIDE LEVEL 107 MMOL/L (98-107); CREATININE FOR GFR 0.77 MG/DL (0.55-1.30); GLOMERULAR FILTRATION RATE > 90.0 (>60); POTASSIUM SERUM 4.4 MMOL/L (3.5-5.1); SODIUM LEVEL 147 MMOL/L (136-145)
[2025-03-06 15:58] LABS: ERYTHROCYTE SEDIMENTATION RATE 12 mm/hr (0-20)
== END ==
LOC: M SFHCRHEU 10:39
PROVIDERS: ATTEND Internal Medicine Rheumatology
DX: R52 Pain, unspecified (principal); M35.00 Sjogren syndrome, unspecified; R53.83 Other fatigue; H57.9 Unspecified disorder of eye and adnexa; R41.89 Other symptoms and signs involving cognitive functions and awareness; R42 Dizziness and giddiness; R04.0 Epistaxis

== ENCOUNTER → 2025-05-21 | Outpatient (CLI) | payer OTHER ==
[~2025-05-21] MED LIST changes: -CHOL25CA2 PO; +D3 H10003 PO; -FISH10005 PO; +FISH1CAP38 PO; -PROZ20CA12 PO; +PROZ20CA25 PO
== END ==
LOC: M RAD 09:45
PROVIDERS: ATTEND Internal Medicine Rheumatology
DX: Z15.89 Genetic susceptibility to other disease (principal)

== ENCOUNTER → 2025-05-28 | Outpatient (CLI) | payer OTHER ==
[~2025-05-28] MED LIST changes: +CHOL25CA2 PO; -D3 H10003 PO; +FISH10005 PO; -FISH1CAP38 PO; +PROZ20CA12 PO; -PROZ20CA25 PO
[2025-05-28 10:56] LABS: CORTISOL AM 0.9 UG/DL (4.3-22.4)
[2025-05-28 10:59] LABS: FREE T4 1.12 NG/DL (0.89-1.76)
== END ==
LOC: M PLALAB 07:19
PROVIDERS: ATTEND Internal Medicine
DX: L68.0 Hirsutism (principal); E03.8 Other specified hypothyroidism
CPT/HCPCS: 36415; 82533; 84439; G0480

== ENCOUNTER → 2025-05-30 | Outpatient (REF) | payer OTHER ==
[2025-05-30 12:43] LABS: Trichomonas vaginalis (AMP) NOT DETECTED (NEGATIVE)
[2025-05-30 13:06] LABS: GC DNA AMPLIFICATION NEGATIVE (NEGATIVE)
[2025-06-01 14:17] LABS: HPV APTIMA Not Detected (Not Detected)
== END ==
LOC: M SFHCWAGY 10:27
PROVIDERS: ATTEND Nurse Practitioner Family
DX: Z12.4 Encounter for screening for malignant neoplasm of cervix (principal); N94.10 Unspecified dyspareunia; N93.0 Postcoital and contact bleeding; R87.610 Atypical squamous cells of undetermined significance on cytologic smear of cervix (ASC-US)
CPT/HCPCS: 87070; 87624; 87661; 87810; 87850; G0123

== ENCOUNTER → 2025-06-19 | Outpatient (CLI) | payer OTHER | LOC: M CARPUL 07:16 | PROVIDERS: ATTEND Physician Assistant | DX: R07.9 Chest pain, unspecified (principal) | CPT/HCPCS: 78452; 93017; A9500 ==

== ENCOUNTER → 2025-06-20 | Outpatient (CLI) | payer OTHER | LOC: M PLAIMG 08:57 | PROVIDERS: ATTEND Internal Medicine Rheumatology | DX: Z15.89 Genetic susceptibility to other disease (principal) ==

== ENCOUNTER → 2025-06-21 | Outpatient (CLI) | payer OTHER | LOC: M RAD 07:57 | PROVIDERS: ATTEND Nurse Practitioner Family | DX: N93.0 Postcoital and contact bleeding (principal) ==

== ENCOUNTER → 2025-06-25 | Outpatient (REF) | payer OTHER ==
[~2025-06-25] MED LIST changes: -CHOL25CA2 PO; +D3 H10003 PO; -FISH10005 PO; +FISH1CAP38 PO; -PROZ20CA12 PO; +PROZ20CA25 PO
== END ==
LOC: M SFHCDERM 10:33
PROVIDERS: ATTEND Physician Assistant
DX: D48.9 Neoplasm of uncertain behavior, unspecified (principal)